=== PATIENT | female | born 1965 | race Caucasian/White ===

== ENCOUNTER 2016-04-27 22:04 | Inpatient (IN) | payer MEDICAID ==
--- NOTE | 2016-04-27 22:28 | EDPRACDOC ---
- General Information Stated Complaint: RESP Time Seen by Provider: 04/27/16 22:15 Information Source: Patient Mode Of Arrival: Ambulance Home Medications: Home Medications Sertraline HCl [Zoloft] 25 mg PO DAILY 04/26/13 Hydrochlorothiazide 25 mg PO QAM #30 tab 05/06/13 Mometasone/Formoterol [Dulera 100 Mcg/5 Mcg Inhaler] 1 puff IH BID 08/12/15 Omeprazole [Prilosec] 40 mg PO DAILY 08/12/15 Albuterol Sulfate [Proair Hfa] 2 puff INH Q4-6H PRN 01/06/16 Nebulizer [Erapid Nebulizer] 1 each MC .UNKNOWN 01/06/16 Albuterol/Ipratropium Neb [Duoneb] 3 ml NEB Q6H #1 box 01/13/16 ClonazePAM [Klonopin] 0.5 mg PO QHS PRN 02/17/16 Alprazolam [Xanax] 0.5 mg PO Q6H PRN #60 tablet 02/23/16 Azithromycin [Zithromax] 500 mg PO Q24H #7 mg 02/23/16 Hydrocodone Bit/Acetaminophen [Lortab 5/325] 1 tab PO Q4H PRN #30 tablet Prednisone [Deltasone, Orasone] 10 mg PO .TAPER #42 tab 02/23/16 Allergies/Adverse Reactions: Allergies Allergy/AdvReac Type Severity Reaction Status Date / Time No Known Allergies Allergy Verified 01/06/16 19:03 - History of Present Illness HPI: SOB FOR A WEEK, GRADUAL ONSET, PROGRESSIVELY WORSENING. MINIMAL PRODUCTIVE. SOLUMEDROL EN ROUTE, 2 DUONEBS BY EMS. SEVERAL NEBS AT HOME. NO FEVER. SOME CHEST PAIN WITH COUGHING. Shortness of Breath: Severe Relevant History: Reports: COPD Cough: Reports: Productive Rhinorrhea: Reports: None Ear Symptoms: Reports: None ED Past Medical History - History Reviewed Yes Nurses notes reviewed and agree except as marked - Patient Medical History Cardiac History: Reports: Hypertension Respiratory History: Reports: COPD (uses home nebs & inhalers - no oxygen), Pneumonia Psychological History: Reports: Depression (takes zoloft), Anxiety. Denies: Substance Use Disorder Systemic History: Denies: Cancer Surgical History: Reports: Tonsillectomy/Adnoidectomy - Family Medical History Reports: Hypertension (Mom), Diabetes (Mom), Cancer (mom), Stroke (mom), Cardiac Disorders (oldest child has "hardening of her arteries" - isn't sure what it's called) - Social Medical History Smoking Status: Heavy tobacco smoker (5 or more cigarettes/day or daily pipe/ cigar) Social History: Denies: Substance Use Disorder EDM Review of Systems - Review of Systems ROS Negative Except as Marked: Yes All systems reviewed and were negative except as marked Constitutional: Chills, Weakness Respiratory: Cough, Shortness of Breath Gastrointestinal: No Symptoms Reported Genitourinary: No Symptoms Reported Neurological: No Symptoms Reported - Physical Exam Constitutional: Alert (Awake) Oriented to: Time, Person, Place Last recorded Vital Signs: Oxygen Pulse Oxygen Saturation O2 Device Oxygen Flow Rate Fraction of Inspired Oxygen ( FIO2) - HEENT Head: Normal ( normocephalic) Eye Exam: Normal (PERRL, EOMI, Sclera white) Oropharynx: Normal (Pharynx:Moist without exudate,Gums-no swelling) Tympanic Membrane: Normal ENT EAC: Normal TMJ: Normal Nose: No Symptoms Reported (septum midline) Neck: Normal (FROM, trachea at midline) - Respiratory/Cardiovascular Respiratory: Wheezes (VERY TIGHT.) Cardiovascular: Normal - GI Auscultation: Normal (NABS) Palpation: Normal (Soft,No rebound or guarding, non distended) Tenderness: Non tender Salgado's Sign: Negative - Musculoskeletal Back: Normal (Non-Tender) Extremities: Normal (Normal tone, Pulses 2+ No cyanosis or edema, FROM) - Integumentary Skin: Normal, Warm, Dry Lymphatics: Normal (no adenopathy) - Neurologic Memory Impaired: Normal Motor Function: Normal (Normal tone, Pulses 2+ No cyanosis or edema, FROM) Cranial Nerve: Normal (CN II-X11 intact sensation, strength 5/5) Cerebellar: Normal Mood Description: Normal Perception: Normal ED SOB MDM - Results Result Diagrams: 04/27/16 22:17 04/27/16 22:17 - EKG EKG #1 EKG Time: 22:13 -: Yes EKG interpreted by me Rate: bpm: 91 Olden: Normal Rhythm: NSR Block: None Hypertrophy: None ST: Normal Comments: NORMAL EKG - Departure Yes I personally saw and evaluated the patient. Disposition: Admit IP To This Hospital Final Diagnosis: Acute exacerbation of chronic obstructive airways disease Decision to Admit Time: 23:28 Decision to admit date: 04/27/16 Decision to admit: from ED - Physician Consulted Hospitalist Time Called: 23:28 Provider Called: Latosha Boogie Time Driver [employer] Returned Call: 23:28
[2016-04-27 22:31] LABS: ALLEN'S TEST PASS; TCO2 31.2 MMOL/L (23-27)
[2016-04-27 22:32] LABS: ABG Draw Site Right Radial; ABG Draw Tech BKL
[2016-04-27 22:38] LABS: AUTOMATED BASOPHIL 1.7 % (0-2); AUTOMATED EOSINOPHIL 2.9 % (0-5); AUTOMATED LYMPH 34.1 % (17-44); AUTOMATED MONOCYTE 5.5 % (3-10); AUTOMATED NEUTROPHIL 55.8 % (45-76); MPV 8.1 fL (7.4-10.4)
[2016-04-27 22:45] LABS: PARTIAL THROMB. TIME 26.3 SEC (22-35); PT-INR 1.1
[2016-04-27 22:52] LABS: BLOOD UREA NITROGEN 18 MG/DL (7-17); CALC CORRECTED 9.2 MG/DL (8.4-10.2); CALCULATED OSMOLALITY 275 MOs/Kg (270-290); CHLORIDE 104 mEq/L (98-107); GLUCOSE 106 MG/DL (70-99); SODIUM LEVEL 142 mEq/L (137-146); TOTAL PROTEIN 7.1 G/DL (6.3-8.2)
[2016-04-27] MEDS ORDERED: CODEINE PO ONE (23:00)
[2016-04-27] MEDS ORDERED: GUAIFEN PO ONE (23:00)
[2016-04-27] MEDS ORDERED: ALBUTEROL 0.083% 3 ML NEB NEB ONE (23:18)
[2016-04-27 23:19] LABS: CA OXALATE 3+; LEUKOCYTES/URINE TRACE (NEGATIVE); NITRITE/URINE NEG (NEGATIVE); URINE OCCULT BLOOD NEG (NEG/TRACE)
--- NOTE | 2016-04-27 23:31 | DIRPT ---
CLINICAL DATA: Acute onset of shortness of breath and intermittent chest pain. Cough. Initial encounter. EXAM: PORTABLE CHEST 1 VIEW COMPARISON: Chest radiograph performed 02/22/2016 FINDINGS: The lungs are well-aerated and clear. There is no evidence of focal opacification, pleural effusion or pneumothorax. The cardiomediastinal silhouette is within normal limits. No acute osseous abnormalities are seen. IMPRESSION: No acute cardiopulmonary process seen. Electronically Signed By: Roberto Curtis M.D. On: 04/27/2016 23:28
[2016-04-27] MEDS ORDERED: MORPHINE 2 MG/ML INJECTION IV ONE (23:35)
--- NOTE | 2016-04-27 23:36 | HISTPHYS ---
- Chief Complaint Shortness of breath worsening all day long - History of Present Illness SOB FOR A WEEK, GRADUAL ONSET, PROGRESSIVELY WORSENING. MINIMAL PRODUCTIVE. SOLUMEDROL EN ROUTE, 2 DUONEBS BY EMS. SEVERAL NEBS AT HOME. NO FEVER. SOME CHEST PAIN WITH COUGHING. Shortness of Breath: Severe Relevant History: Reports: COPD Cough: Reports: Productive Rhinorrhea: Reports: None Ear Symptoms: Reports: None 50-year-old female presents emergency department complaining of shortness of breath. She was evaluated and found to be somewhat hypoxemic. She received Solu-Medrol on route also several rounds of duo nebs by EMS, several nebs at home and did not feel better and therefore is being admitted to the hospital. This will marked her 5th admission in 9 months for CHRONIC OBSTRUCTIVE PULMONARY DISEASE exacerbation. The patient continues to enjoy smoking and states that she has cut back to less than a pack a day. She is very anxious and tearful in the emergency department and complaining of pain in her chest as well. She will be admitted into the hospital for further evaluation and management of chronic obstructive pulmonary disease with acute exacerbation. - Medical History Cardiac History: Reports: Hypertension Respiratory History: Reports: COPD (uses home nebs & inhalers - no oxygen), Pneumonia GI/ History: Reports: No Significant History Musculoskeletal History: Reports: No Significant History Systemic History: Denies: Cancer Neurological History: Reports: No Significant History Psychological History: Reports: Depression (takes zoloft), Anxiety. Denies: Substance Use Disorder - Surgical History Reports: Tonsillectomy/Adnoidectomy - Medictions/Allergies Allergies No Known Allergies Allergy (Verified 01/06/16 19:03) Current Medication List: Reviewed Home Medications Sertraline HCl [Zoloft] 25 mg PO DAILY 04/26/13 Hydrochlorothiazide 25 mg PO QAM #30 tab 05/06/13 Mometasone/Formoterol [Dulera 100 Mcg/5 Mcg Inhaler] 1 puff IH BID 08/12/15 Omeprazole [Prilosec] 40 mg PO DAILY 08/12/15 Albuterol Sulfate [Proair Hfa] 2 puff INH Q4-6H PRN 01/06/16 Nebulizer [Erapid Nebulizer] 1 each MC .UNKNOWN 01/06/16 Albuterol/Ipratropium Neb [Duoneb] 3 ml NEB Q6H #1 box 01/13/16 ClonazePAM [Klonopin] 0.5 mg PO QHS PRN 02/17/16 Alprazolam [Xanax] 0.5 mg PO Q6H PRN #60 tablet 02/23/16 Azithromycin [Zithromax] 500 mg PO Q24H #7 mg 02/23/16 Hydrocodone Bit/Acetaminophen [Lortab 5/325] 1 tab PO Q4H PRN #30 tablet Prednisone [Deltasone, Orasone] 10 mg PO .TAPER #42 tab 02/23/16 - Family History Reports: Hypertension (Mom), Diabetes (Mom), Cancer (mom), Stroke (mom), Cardiac Disorders (oldest child has "hardening of her arteries" - isn't sure what it's called) - Social History Travel Outside of [place] in the Last 3 Months?: No Lives: with Spouse Smoking Status: Heavy tobacco smoker (5 or more cigarettes/day or daily pipe/ cigar) Social History: Denies: Alcohol Use, Substance Use Disorder Both her and her daughter smoke in the house and in the car she drives in - Review of Systems Constitutional: No Symptoms Reported (No Fever, chills, wt loss/gain, diaphoresis,fatigue/malaise.) Eyes: No Symptoms Reported (No blurry vision, visual changes, eye pain, or eye redness.) Ears: No Symptoms Reported (No ear pain or discharge) Nose: No Symptoms Reported (No nasal discharge/congestion or bleeding) Mouth: No Symptoms Reported (No oropharyngeal lesions or erythema) Respiratory: Shortness of Breath, Wheezing, Bronchitis, Dyspnea. negative: Sputum Cardiovascular: No Symptoms Reported (No chest pain or palpitations.) Gastrointestinal: No Symptoms Reported (No abdominal pain, nausea, vomiting, diarrhea, constipation, or bloody stool.) Genitourinary: No Symptoms Reported (No dysuria or hematuria.) Neurological: No Symptoms Reported (No headache, dizziness, seizures, or focal weakness.) Musculoskeletal:: No Symptoms Reported Integumentary: No Symptoms Reported (no rashes or lesions) Allergic/Immunologic: No Symptoms Reported (no rashes or lesions) Hematologic: No Symptoms Reported (No chronic anemia, bleeding, or easy bruising.), Other (Lymphatics- no lymph node swelling or pain.) Endocrine: No Symptoms Reported (No thyroid issues, polyuria, or polydipsia.) Psychiatric: No Symptoms Reported (Fully oriented, with normal and appropriate affect.) - Physical Exam Vital Signs: Initial Vitals Temperature 98.9 F 04/27/16 22:05 Pulse Rate 95 04/27/16 22:05 Respiratory Rate 26 H 04/27/16 22:05 Blood Pressure 179/93 04/27/16 22:05 Pulse Oxygen Saturation 95 04/27/16 22:05 Constitutional: Distress (Moderate due to CHRONIC OBSTRUCTIVE PULMONARY DISEASE and also due to anxiety), Well nourished. negative: Well appearing Oriented to: Time, Person, Place - HEENT Head: Normal (normocephalic, atraumatic.), Other (No cervical lymphadenopathy. No supraclavicular lymphadenopathy. Neck: No palpable mass, supple , trachea midline.) Eye: Normal (pupils equal, reactive to light, and round; EOMI, Sclera white) Oropharynx: Normal (Pharynx: Moist without exudate,Gums-no swelling, No oropharyngeal lesions or erythema, Mucous membranes are dry.) Nose: No Symptoms Reported (septum midline, Nares patent, without discharge or bleeding.) Respiratory: Accessory Muscle Use, Rhonchi, Tachypnea, Wheezes. negative: Retractions Cardiovascular: Normal (RRR , Normal S1, S2. No murmurs, rubs, or gallops. PMI non-displaced. Carotids: no carotid bruits. No bradycardia or tachycardia. DP pulses 2+ bilaterally.) - GI Auscultation: Normal (normal active sounds) Palpation: Normal (Soft,non distended,nontender. No hepatosplenomegaly.) Tenderness: Non tender (No rebound or guarding) Salgado's Sign: Negative - Musculoskeletal Back: Normal (Non-Tender) Extremities: Normal (Normal tone, DP pulses 2+ bilaterally, No cyanosis or edema bilaterally, FROM bilaterally.) - Integumentary Skin: Normal (Clean, dry, and intact. No rashes. No lesions.) Lymphatics: Normal (No cervical lymphadenopathy. No supraclavicular lymphadenopathy.) - Neurologic Memory Impaired: Normal Motor Function: Normal (Motor 5/5 throughout.Normal tone, Pulses 2+ No cyanosis or edema, FROM) Cranial Nerve: Normal (CN II-XII intact sensation, strength 5/5) Cerebellar: Normal (Babinski: toes downgoing bilaterally. Intact Finger to nose. Sensory grossly intact to light touch. Intact rapid alternating movements bilaterally. No pronator drift.) Mood Description: Anxious, Agitated Perception: Normal (Normal and appropriate affect.) - Focused CV Perfusion Exam Vital Signs: Last Vital Signs Temp 98.9 F 04/27/16 22:05 Pulse 84 04/27/16 23:20 Resp 22 04/27/16 23:20 BP 159/93 04/27/16 23:20 Pulse Ox 95 04/27/16 23:20 - Lab Results Laboratory Results - last 24 hr 04/27/16 04/27/16 04/27/16 22:17 22:17 22:17 WBC 10.0 RBC 4.98 Hgb 15.6 Hct 46.3 MCV 93 MCH 31.4 MCHC 33.7 RDW 14.1 Plt Count 328 MPV 8.1 Neut % (Auto) 55.8 Lymph % (Auto) 34.1 [place] % (Auto) 5.5 Eos % (Auto) 2.9 Baso % (Auto) 1.7 Absolute Neuts (auto) 5.50 Absolute Lymphs (auto) 3.40 PT INR APTT Puncture Site pH pCO2 pO2 HCO3 Total CO2 Base Excess FiO2 % Specimen Drawn By Sodium 142 Potassium 4.3 Chloride 104 Carbon Dioxide 29 Anion Gap 13 BUN 18 H Creatinine 0.60 Estimated GFR (MDRD) > 60 Glucose 106 H Calculated Osmolality 275 Lactic Acid 1.1 Calcium 9.0 Corrected Calcium 9.2 Total Bilirubin 0.4 AST 23 ALT 28 Alkaline Phosphatase 67 Troponin I < 0.01 [id number] Pept 178 Total Protein 7.1 Albumin 3.8 Urine Color Urine Clarity Urine pH Ur Specific [place] Urine Protein Urine Glucose (UA) Urine Ketones Urine Occult Blood Urine Nitrite Urine Bilirubin Urine Urobilinogen Ur Leukocyte Esterase Ur Epithelial Cells Calcium Oxalate Crystal Urine Bacteria Urine Mucus 04/27/16 04/27/16 04/27/16 22:17 22:25 23:04 WBC RBC Hgb Hct MCV MCH MCHC RDW Plt Count MPV Neut % (Auto) Lymph % (Auto) [place] % (Auto) Eos % (Auto) Baso % (Auto) Absolute Neuts (auto) Absolute Lymphs (auto) PT 10.8 INR 1.1 APTT 26.3 Puncture Site Right radial pH 7.400 pCO2 48.0 H pO2 70.0 L HCO3 29.7 H Total CO2 31.2 H Base Excess 4.0 H FiO2 % 3 lpm Specimen Drawn By Bkl Sodium Potassium Chloride Carbon Dioxide Anion Gap BUN Creatinine Estimated GFR (MDRD) Glucose Calculated Osmolality Lactic Acid Calcium Corrected Calcium Total Bilirubin AST ALT Alkaline Phosphatase Troponin I [id number]-[id number] Pept Total Protein Albumin Urine Color Yellow Urine Clarity Cldy Urine pH 6.0 Ur Specific [place] 1.025 Urine Protein Neg Urine Glucose (UA) Neg Urine Ketones Neg Urine Occult Blood Neg Urine Nitrite Neg Urine Bilirubin Neg Urine Urobilinogen <2.0 Ur Leukocyte Esterase Trace H Ur Epithelial Cells 4+ Calcium Oxalate Crystal 3+ Urine Bacteria Few Urine Mucus Sm amt - Diagnostic Findings EXAM: PORTABLE CHEST 1 VIEW COMPARISON: Chest radiograph performed 02/22/2016 FINDINGS: The lungs are well-aerated and clear. There is no evidence of focal opacification, pleural effusion or pneumothorax. The cardiomediastinal silhouette is within normal limits. No acute osseous abnormalities are seen. IMPRESSION: No acute cardiopulmonary process seen. Electronically Signed By: Roberto Curtis M.D. On: 04/27/2016 23:28 - Assessment (1) Acute exacerbation of chronic obstructive airways disease J44.1 - CHRONIC OBSTRUCTIVE PULMONARY DISEASE W (ACUTE) EXACERBATION Acute Present on Admission: Yes Patient will be admitted into the hospital and treated with IV antibiotics, oxygen supplementation, IV steroids, nebulized bronchodilators. (2) Hypoxia R09.02 - HYPOXEMIA Acute Present on Admission: Yes Up to this point patient has not required home oxygen. We will replete oxygen with nasal cannula oxygen. Will test her oxygen exercise capacity prior to discharge. Hopefully she will not developed an oxygen requirement. (3) Nicotine addiction F17.200 - NICOTINE DEPENDENCE, UNSPECIFIED, UNCOMPLICATED Acute Present on Admission: Yes Qualifiers: Nicotine product type: cigarettes Substance use status: unspecified nicotine-induced disorder Qualified Code(s): F17.219 - Nicotine dependence, cigarettes, with unspecified nicotine-induced disorders Discussed with the patient the reason she is being admitted to the hospital as her continued use of cigarettes. She became tearful and upset she states she is trying to quit and I encouraged her to continue attempting to quit. I informed her that takes multiple tries prior to being able to quit smoking. It is especially difficult if those in her house are continuing to smoke around her and in vehicles she travels in. (4) Anxiety and depression F41.8 - OTHER SPECIFIED ANXIETY DISORDERS Chronic Patient very tearful a seeming and very anxious. Likely related to hypoxemia. Continue home medications when they are verified. (5) Hypertension I10 - ESSENTIAL (PRIMARY) HYPERTENSION Chronic Qualifiers: Hypertension type: essential hypertension Continue home meds once verified. (6) Tobacco abuse Z72.0 - TOBACCO USE Chronic Continue encouraging patient to quit smoking. (7) Tobacco abuse counseling Z71.6 - TOBACCO ABUSE COUNSELING Acute Present on Admission: Yes Patient counseled for 10 minutes regarding smoking cessation. Will refer her to quit smart. Will give her a nicotine patch and Wellbutrin while in the hospital. - Plan Admit. Oxygen. IV antibiotics. IV steroids. Nebulized bronchodilators. Case Care Discussed with: Patient, Nursing Staff Total Time: 60 minutes Critical Care: No Couseling Time (>50% in counseling/coordination): No
[2016-04-27] MEDS ORDERED: GLUCAGON 1 MG VIAL SQ PRN (23:37)
[2016-04-27] MEDS ORDERED: DEXTROSE 25 GM/50 ML PFS IV PRN (23:37)
[2016-04-27] MEDS ORDERED: MAGNESIUM HYDROXIDE 30 ML BOTTLE PO PRN (23:37)
[2016-04-27] MEDS ORDERED: GLUCOSE (ORAL GEL) 15 GM TUBE PO PRN (23:37)
[2016-04-27] MEDS ORDERED: SODIUM CHLORIDE 0.9% 3 ML FLUSH FLUSH PRN (23:37)
[2016-04-27] MEDS ORDERED: ALBUTEROL 0.083% 3 ML NEB NEB PRN (23:37)
[2016-04-27] MEDS ORDERED: PROMETHAZINE 25 MG/ML VIAL IV PRN (23:37)
[2016-04-27] MEDS ORDERED: MORPHINE 2 MG/ML INJECTION IV PRN (23:41)
[2016-04-27] MEDS ORDERED: GUAIFENESIN 600 MG LA TAB PO PRN (23:41)
[2016-04-28] MEDS: ENOXAPARIN 40 MG/0.4 ML PFS SQ SCH ×2 (01:31→18:01)
[2016-04-28] MEDS: METHYLPREDNISOLONE 125 MG/2 ML VIAL IV SCH ×4 (01:31→17:59)
[2016-04-28] MEDS: NICOTINE 21 MG PATCH TOP SCH (01:31)
[2016-04-28] MEDS: CEFTRIAXONE 1 GM in D5W 100 ML IV SCH (01:32)
[2016-04-28] MEDS: AZITHROMYCIN 500 MG in D5W 250 ML IV SCH (01:32)
[2016-04-28] MEDS: NS/KCl 20 mEq 1,000 ML IV SCH ×3 (01:32→17:56)
[2016-04-28] MEDS: TUSSIONEX 5 ML ORAL SYRINGE PO PRN ×2 (01:44→14:49)
[2016-04-28] MEDS ORDERED: Vaccine Screening Complete SCH (02:00)
[2016-04-28] MEDS: Albuterol/Ipratropium Neb 3 ML NEB NEB SCH ×4 (02:10→20:10)
[2016-04-28 04:13] LABS: MPV 8.3 fL (7.4-10.4)
[2016-04-28 04:26] LABS: BLOOD UREA NITROGEN 14 MG/DL (7-17); CALCIUM 8.7 MG/DL (8.4-10.2); CALCULATED OSMOLALITY 275 MOs/Kg (270-290); CHLORIDE 104 mEq/L (98-107); GLUCOSE 192 MG/DL (70-99); SODIUM LEVEL 140 mEq/L (137-146)
[2016-04-28] MEDS: SODIUM CHLORIDE 0.9% 3 ML FLUSH FLUSH SCH ×2 (05:01→17:59)
[2016-04-28 05:10] LABS: SEG NEUTROPHIL 88 % (45-76)
[2016-04-28 05:11] LABS: TOTAL CELL COUNT 100
[2016-04-28] MEDS: REGULAR INSULIN 100 UNITS/ML - 3 ML VIAL SQ SCH ×4 (05:39→21:22)
[2016-04-28] MEDS: BuPROPion 150 MG SR TAB PO SCH (08:03)
[2016-04-28] MEDS: BENZONATATE 100 MG PERLES PO PRN (08:03)
[2016-04-28 09:01] LABS: ALLEN'S TEST PASS; BEb -0.7 (+/- 2); TCO2 27.3 MMOL/L (23-27)
[2016-04-28 09:02] LABS: ABG Draw Site Right Radial
[2016-04-28] MEDS: ACETAMINOPHEN 325 MG/TAB TABLET PO PRN (12:15)
[2016-04-28] MEDS: ALPRAZOLAM 0.5 MG TAB PO PRN ×2 (14:49→21:19)
[2016-04-28] MEDS ORDERED: Albuterol/Ipratropium Neb 3 ML NEB NEB SCH (15:00)
--- NOTE | 2016-04-28 15:11 | GENMEDPROG ---
Chief Complaint: COPD exac, resp insufficiency, Notes Reviewed: Yes Events from last night noted and discussed with Clinical Staff Current Medication List: Reviewed Currently: Reports: Cough, Wheezing, [place], SOB DVT Prophylaxis: Yes - Physical Examination Vital Signs and I&O: Last Vital Signs Temp 97.5 F 04/28/16 11:54 Pulse 101 04/28/16 14:00 Resp 18 04/28/16 11:54 BP 145/86 04/28/16 11:54 Pulse Ox 97 04/28/16 11:54 Oxygen Pulse Oxygen Saturation 97 O2 Device Nasal Cannula Oxygen Flow Rate 2 Fraction of Inspired Oxygen ( FIO2) Intake & Output 04/25/16 04/26/16 04/27/16 04/28/16 23:59 23:59 23:59 23:59 Intake Total 931 Output Total 800 Balance 131 Patient's weight 59.534 kg General: Moderate distress. negative: Alert, Oriented x3 HEENT: Normal, PERRLA, EOMI, Anicteric Sclera, Mucous membr. moist/pink Neck: Full range of motion, Normal Trachea alignment, Normal inspection, No Masses palpable Lymphatics: Normal (No cervical lymphadenopathy. No supraclavicular lymphadenopathy.) Respiratory: Accessory Muscle Use, Rhonchi, Tachypnea, Wheezes. negative: Retractions Cardiovascular: Regular rate and rhythm, Normal S1, Normal S2 GI: Normal bowel sounds, Soft, Non tender, No masses Extremities/Musculoskeletal: Normal pulses, FROM Skin: Warm,Dry and Intact, No breakdown, No significant lesion Neurological: Normal tone, Cranial nerves 3-12 NL, Drowsy, Lethargy Psych/Mental Status: Drowsy, Somnolent, Lethargic Lab/DI/Studies Reviewed: Laboratory Tests 04/28/16 04/28/16 04/28/16 03:50 03:50 03:50 WBC 8.5 Hgb 15.1 Hct 46.0 Plt Count 307 Seg Neuts % (Manual) 88 H Band Neutrophils % 0 pH pCO2 pO2 HCO3 Total CO2 Base Excess FiO2 % Sodium 140 Potassium 4.5 Chloride 104 Carbon Dioxide 28 Anion Gap 13 BUN 14 Creatinine 0.50 L Estimated GFR (MDRD) > 60 POC Capillary Glucose Calculated Osmolality 275 Calcium 8.7 Troponin I < 0.01 04/28/16 04/28/16 05:21 08:54 WBC Hgb Hct Plt Count Seg Neuts % (Manual) Band Neutrophils % pH 7.330 L pCO2 49.0 H pO2 99.0 HCO3 25.8 Total CO2 27.3 H Base Excess -0.7 FiO2 % 2 lpm nc Sodium Potassium Chloride Carbon Dioxide Anion Gap BUN Creatinine Estimated GFR (MDRD) POC Capillary Glucose 145 H Calculated Osmolality Calcium Troponin I - Assessment (1) Acute exacerbation of chronic obstructive airways disease Acute J44.1 - CHRONIC OBSTRUCTIVE PULMONARY DISEASE W (ACUTE) EXACERBATION Comment/Plan: Patient will be admitted into the hospital and treated with IV antibiotics, oxygen supplementation, IV steroids, nebulized bronchodilators. (2) Hypoxia Acute R09.02 - HYPOXEMIA Comment/Plan: Up to this point patient has not required home oxygen. We will replete oxygen with nasal cannula. Maintain O2 sat >92%. Will test her oxygen exercise capacity prior to discharge. (3) Acute bronchitis Acute J20.9 - ACUTE BRONCHITIS, UNSPECIFIED Comment/Plan: Add Rocephin, Zithromax antibiotics for acute infectious bronchitis. Treat with Duo-Nebs q 6H and q 2H PRN. Add Inhaled steroids also, to help decrease need for IV steroids. (4) Respiratory distress Acute R06.00 - DYSPNEA, UNSPECIFIED Comment/Plan: Still with significant coarse rhonchi and wheezes on exam. Encourage activity. Continue IV steroids, IV antibiotics, nebulizer treatments. (5) Anxiety and depression Chronic F41.8 - OTHER SPECIFIED ANXIETY DISORDERS Comment/Plan: Patient very tearful & seeming very anxious. Possible related to hypoxemia. Continue home medications when they are verified. (6) Hypertension Chronic I10 - ESSENTIAL (PRIMARY) HYPERTENSION Qualifiers: Hypertension type: essential hypertension Comment/Plan: Continue home meds once verified. (7) Tobacco abuse Chronic Z72.0 - TOBACCO USE Comment/Plan: Encourage patient to quit smoking. Offer nicotine patch, discuss vapor cigarettes as safer alternative. Case Care Discussed with: Patient, Nursing Staff Education/Counseling Given To: Patient Education/Counseling Given Regarding: Diagnosis, Treatment, Prognosis
[2016-04-28] MEDS ORDERED: OXYCODONE HCL 5 MG TABLET PO PRN (19:42)
[2016-04-28] MEDS: OXYCODONE HCL 5 MG TABLET PO ONE ×2 (20:28→21:19)
[2016-04-28] MEDS ORDERED: FLUTICASONE PROPIONATE INH SCH (21:00)
[2016-04-29] MEDS: AZITHROMYCIN 500 MG in D5W 250 ML IV SCH (00:46)
[2016-04-29] MEDS: NICOTINE 21 MG PATCH TOP SCH (00:46)
[2016-04-29] MEDS: CEFTRIAXONE 1 GM in D5W 100 ML IV SCH (01:25)
[2016-04-29] MEDS: Albuterol/Ipratropium Neb 3 ML NEB NEB SCH ×4 (01:48→20:33)
[2016-04-29] MEDS: Aluminum;Magnesium;Simethicone 30 ML UDC PO PRN (01:54)
[2016-04-29] MEDS: METHYLPREDNISOLONE 40 MG/1 ML VIAL IV SCH ×2 (05:32→16:50)
[2016-04-29] MEDS: PANTOPRAZOLE 40 MG TAB PO SCH (05:33)
[2016-04-29] MEDS: SODIUM CHLORIDE 0.9% 3 ML FLUSH FLUSH SCH ×2 (05:35→16:50)
[2016-04-29] MEDS: REGULAR INSULIN 100 UNITS/ML - 3 ML VIAL SQ SCH ×4 (05:35→21:06)
[2016-04-29] MEDS: FLUTICASONE PROPIONATE INH SCH ×2 (08:01→20:30)
[2016-04-29] MEDS: SERTRALINE HCL 100 MG TAB PO SCH (08:26)
[2016-04-29] MEDS: BuPROPion 150 MG SR TAB PO SCH (08:26)
[2016-04-29] MEDS ORDERED: Non-Formulary Medication ITEM (Omeprazole [Prilosec] 40 MG) PO SCH (09:00)
[2016-04-29] MEDS: ENOXAPARIN 40 MG/0.4 ML PFS SQ SCH (16:50)
[2016-04-29] MEDS: ALPRAZOLAM 0.5 MG TAB PO PRN (16:56)
--- NOTE | 2016-04-29 17:51 | GENMEDPROG ---
Chief Complaint: COPD exacerbation Subjective Note: Patient was off oxygen for brief period of time today but did not tolerate it. Blood sugars have been 106-169. Current Medication List: Reviewed Currently: Reports: Cough (Nonproductive), Wheezing, MONTG[place], SOB, Tobacco Use/Hx, Ambulating (Short of breath walking in room). Denies: Nausea and Vomiting, Fever/Chills DVT Prophylaxis: Yes - Physical Examination Vital Signs and I&O: Last Vital Signs Temp 98.2 F 04/29/16 14:20 Pulse 104 04/29/16 14:20 Resp 18 04/29/16 14:20 BP 129/80 04/29/16 14:20 Pulse Ox 94 04/29/16 14:20 Oxygen Pulse Oxygen Saturation 94 O2 Device Nasal Cannula Oxygen Flow Rate 1 Fraction of Inspired Oxygen ( FIO2) Intake & Output 04/26/16 04/27/16 04/28/16 04/29/16 23:59 23:59 23:59 23:59 Intake Total 2942 740 Output Total 1500 1600 Balance 1442 -860 Patient's weight 59.534 kg 60.838 kg General: Moderate distress (Still with an audible wheeze). negative: Alert, Oriented x3 HEENT: Normal, Anicteric Sclera, Mucous membr. moist/pink Neck: Full range of motion, Normal inspection, No Masses palpable Lymphatics: negative: Adenopathy Respiratory: Accessory Muscle Use, Rhonchi, Tachypnea (Less than admission), Wheezes. negative: Retractions Cardiovascular: Regular rate and rhythm, Normal S1, Normal S2 GI: Normal bowel sounds, Soft, Non tender, No masses Extremities/Musculoskeletal: Normal pulses, FROM Skin: Warm,Dry and Intact Neurological: Normal speech, Normal tone, Drowsy Psych/Mental Status: Appropriate, Normal Affect, Cooperative Lab/DI/Studies Reviewed: 04/28/16 03:50 04/28/16 03:50 - Assessment (1) Acute exacerbation of chronic obstructive airways disease Acute J44.1 - CHRONIC OBSTRUCTIVE PULMONARY DISEASE W (ACUTE) EXACERBATION Comment/Plan: Patient minimally improved from admission. Continue current treatment. She has had long hospital course this in the past. (2) Hypoxia Acute R09.02 - HYPOXEMIA Comment/Plan: Up to this point patient has not required home oxygen. We will replete oxygen with nasal cannula. Maintain O2 sat >92%. Will test her oxygen exercise capacity prior to discharge. (3) Anxiety and depression Chronic F41.8 - OTHER SPECIFIED ANXIETY DISORDERS Comment/Plan: Less anxious today. Continue home meds (4) Tobacco abuse counseling Acute Z71.6 - TOBACCO ABUSE COUNSELING Comment/Plan: Again discussed the use of nicotine patch and Wellbutrin but more importantly attempting a program like quits marked to help modify her behavior. She states she still enjoys smoking but knows that it is causing her lung disease Case Care Discussed with: Patient, Nursing Staff Education/Counseling Given To: Patient Education/Counseling Given Regarding: Diagnosis, Treatment, Prognosis Total Time: 40 minutes Critical Care: No Code: [id number] (12+)
[2016-04-29] MEDS: BENZONATATE 100 MG PERLES PO PRN (19:34)
[2016-04-29] MEDS: OXYCODONE HCL 5 MG TABLET PO PRN (19:34)
[2016-04-29] MEDS: TUSSIONEX 5 ML ORAL SYRINGE PO PRN (19:37)
[2016-04-30] MEDS: Albuterol/Ipratropium Neb 3 ML NEB NEB SCH ×4 (01:55→20:02)
[2016-04-30] MEDS: AZITHROMYCIN 500 MG in D5W 250 ML IV SCH (02:02)
[2016-04-30] MEDS: NICOTINE 21 MG PATCH TOP SCH (02:02)
[2016-04-30] MEDS: BENZONATATE 100 MG PERLES PO PRN ×2 (03:26→18:54)
[2016-04-30] MEDS: CEFTRIAXONE 1 GM in D5W 100 ML IV SCH (03:26)
[2016-04-30] MEDS: OXYCODONE HCL 5 MG TABLET PO PRN ×2 (03:31→21:19)
[2016-04-30] MEDS: PANTOPRAZOLE 40 MG TAB PO SCH (06:13)
[2016-04-30] MEDS: METHYLPREDNISOLONE 40 MG/1 ML VIAL IV SCH ×2 (06:13→16:52)
[2016-04-30] MEDS: SODIUM CHLORIDE 0.9% 3 ML FLUSH FLUSH SCH ×2 (06:14→16:53)
[2016-04-30] MEDS: REGULAR INSULIN 100 UNITS/ML - 3 ML VIAL SQ SCH ×4 (06:15→21:21)
[2016-04-30] MEDS: ALPRAZOLAM 0.5 MG TAB PO PRN (06:20)
[2016-04-30] MEDS: TUSSIONEX 5 ML ORAL SYRINGE PO PRN (06:22)
[2016-04-30] MEDS: FLUTICASONE PROPIONATE INH SCH ×2 (08:13→20:02)
[2016-04-30] MEDS: BuPROPion 150 MG SR TAB PO SCH (08:38)
[2016-04-30] MEDS: SERTRALINE HCL 100 MG TAB PO SCH (08:38)
--- NOTE | 2016-04-30 15:01 | GENMEDPROG ---
Chief Complaint: COPD exacerbation with hypoxia Subjective Note: The patient's oxygen has been weaned down. She still has significant episodes of bronchospasm and cough. Cough is still nonproductive. On is only ambulating to the bathroom. Current Medication List: Reviewed Currently: Reports: Cough (Nonproductive), Wheezing, [place], SOB, Tobacco Use/Hx, Ambulating (Ambulates to the bathroom). Denies: Nausea and Vomiting, Fever/ Chills DVT Prophylaxis: Yes - Physical Examination Vital Signs and I&O: Last Vital Signs Temp 97.8 F 04/30/16 10:11 Pulse 93 04/30/16 10:11 Resp 18 04/30/16 10:11 BP 113/71 04/30/16 10:11 Pulse Ox 92 04/30/16 10:11 Oxygen Pulse Oxygen Saturation 92 O2 Device Room Air Oxygen Flow Rate 1 Fraction of Inspired Oxygen ( FIO2) Intake & Output 04/27/16 04/28/16 04/29/16 04/30/16 23:59 23:59 23:59 23:59 Intake Total 2942 1420 925 Output Total 1500 1975 1500 Balance 3663 -851 -846 Patient's weight 59.534 kg 60.838 kg 61.887 kg General: Moderate distress (During spells of bronchospasm). negative: Alert, Oriented x3 HEENT: Normal, Anicteric Sclera, Mucous membr. moist/pink Neck: Full range of motion, Normal inspection, No Masses palpable Lymphatics: negative: Adenopathy Respiratory: Accessory Muscle Use, Wheezes. negative: Retractions, Rhonchi Cardiovascular: Regular rate and rhythm, Normal S1, Normal S2. negative: LE Edema GI: Normal bowel sounds, Soft, Non tender, No masses Extremities/Musculoskeletal: Normal pulses, FROM Skin: Warm,Dry and Intact Neurological: Normal speech, Normal tone Psych/Mental Status: Appropriate, Cooperative, Anxious - Assessment (1) Acute exacerbation of chronic obstructive airways disease Acute J44.1 - CHRONIC OBSTRUCTIVE PULMONARY DISEASE W (ACUTE) EXACERBATION Comment/Plan: Slow improvement. Has weaned oxygen to 1 later. Continue oxygen supplementation IV steroids nebulized bronchodilators. Will not taper IV steroids until she show some improvement (2) Hypoxia Acute R09.02 - HYPOXEMIA Comment/Plan: No oxygen requirement prior to this admission. Will recheck prior to discharge when she ambulates. For now will use oxygen to keep sats greater than 92 (3) Anxiety and depression Chronic F41.8 - OTHER SPECIFIED ANXIETY DISORDERS Comment/Plan: Less anxious today. Continue home meds (4) Tobacco abuse counseling Acute Z71.6 - TOBACCO ABUSE COUNSELING Comment/Plan: Patient states she is willing to quit smoking and would like to. Discussed quit smart program at the hospital. Have asked respiratory therapy to help with counseling Case Care Discussed with: Patient, Respiratory Therapy Education/Counseling Given To: Patient Education/Counseling Given Regarding: Diagnosis, Treatment, Prognosis Total Time: 35 minutes Critical Care: No Couseling Time (>50% in counseling/coordination): Yes Code: 33470 (12+)
[2016-04-30] MEDS: ENOXAPARIN 40 MG/0.4 ML PFS SQ SCH (16:52)
[2016-05-01] MEDS: Albuterol/Ipratropium Neb 3 ML NEB NEB SCH ×4 (01:39→20:24)
[2016-05-01] MEDS: NICOTINE 21 MG PATCH TOP SCH (02:20)
[2016-05-01] MEDS: AZITHROMYCIN 500 MG in D5W 250 ML IV SCH (02:21)
[2016-05-01] MEDS: TUSSIONEX 5 ML ORAL SYRINGE PO PRN ×2 (02:29→20:18)
[2016-05-01] MEDS: ALPRAZOLAM 0.5 MG TAB PO PRN ×2 (02:29→18:09)
[2016-05-01] MEDS: CEFTRIAXONE 1 GM in D5W 100 ML IV SCH (04:30)
[2016-05-01] MEDS: METHYLPREDNISOLONE 40 MG/1 ML VIAL IV SCH (05:21)
[2016-05-01] MEDS: PANTOPRAZOLE 40 MG TAB PO SCH (05:21)
[2016-05-01] MEDS: SODIUM CHLORIDE 0.9% 3 ML FLUSH FLUSH SCH ×2 (05:22→16:53)
[2016-05-01] MEDS: REGULAR INSULIN 100 UNITS/ML - 3 ML VIAL SQ SCH ×4 (05:23→21:30)
[2016-05-01] MEDS: BuPROPion 150 MG SR TAB PO SCH ×2 (08:18→21:29)
[2016-05-01] MEDS: SERTRALINE HCL 100 MG TAB PO SCH (08:18)
[2016-05-01] MEDS: FLUTICASONE PROPIONATE INH SCH ×2 (08:30→20:29)
--- NOTE | 2016-05-01 09:14 | GENMEDPROG ---
Subjective Note: Feels a little bit worse today. Complaining of body aches and generalized malaise. Weaned down to 1 L yesterday but went back up to 2 L overnight. Still with cough in spasms. Largely nonproductive. No fevers Currently: Reports: Cough (Nonproductive, paroxysmal), Wheezing, [place], SOB, Tobacco Use/Hx, Ambulating (Ambulates to the bathroom). Denies: Nausea and Vomiting, Fever/Chills DVT Prophylaxis: Yes - Physical Examination Vital Signs and I&O: Last Vital Signs Temp 98.3 F 05/01/16 05:35 Pulse 71 05/01/16 05:35 Resp 18 05/01/16 05:35 BP 132/77 05/01/16 05:35 Pulse Ox 93 05/01/16 08:00 Oxygen Pulse Oxygen Saturation 93 O2 Device Room Air Oxygen Flow Rate 2 Fraction of Inspired Oxygen ( FIO2) Intake & Output 04/28/16 04/29/16 04/30/16 05/01/16 23:59 23:59 23:59 23:59 Intake Total 2942 1420 1325 636 Output Total 1500 0857 1950 700 Balance 1442 -555 -625 -64 Patient's weight 59.534 kg 60.838 kg 61.887 kg 61.689 kg General: Moderate distress (During spells of bronchospasm). negative: Alert, Oriented x3 HEENT: Normal, Anicteric Sclera, Mucous membr. moist/pink Neck: Full range of motion, Normal inspection, No Masses palpable Lymphatics: negative: Adenopathy Respiratory: Accessory Muscle Use, Wheezes, Excursion (decreased excursion but same as yesterday). negative: Retractions, Rhonchi Cardiovascular: Regular rate and rhythm, Normal S1, Normal S2. negative: LE Edema GI: Normal bowel sounds, Soft, Non tender, No masses Extremities/Musculoskeletal: Normal pulses, FROM Skin: Warm,Dry and Intact Neurological: Normal speech, Normal tone Psych/Mental Status: Appropriate, Cooperative, Anxious - Assessment (1) Acute exacerbation of chronic obstructive airways disease Acute J44.1 - CHRONIC OBSTRUCTIVE PULMONARY DISEASE W (ACUTE) EXACERBATION Comment/Plan: Had weaned yesterday but unable to tolerate and now is on 2 L again. During last hospitalization was very slow to clear. repeat CXR but no PNA on admission. Encouraged flutter valve q hr and incentive spirometer qid (2) Hypoxia Acute R09.02 - HYPOXEMIA Comment/Plan: No oxygen requirement prior to this admission. Will recheck prior to discharge when she ambulates. For now will use oxygen to keep sats greater than 92 (3) Anxiety and depression Chronic F41.8 - OTHER SPECIFIED ANXIETY DISORDERS Comment/Plan: Less anxious today. Continue home meds (4) Tobacco abuse counseling Acute Z71.6 - TOBACCO ABUSE COUNSELING Comment/Plan: Wearing nicotine patch Case Care Discussed with: Patient, Nursing Staff Education/Counseling Given To: Patient Education/Counseling Given Regarding: Diagnosis, Treatment Total Time: 30 min Critical Care: No Couseling Time (>50% in counseling/coordination): Yes Code: 39862 (12+)
[2016-05-01] MEDS: METHYLPREDNISOLONE 125 MG/2 ML VIAL IV SCH ×2 (15:02→20:10)
--- NOTE | 2016-05-01 15:30 | DIRPT ---
CLINICAL DATA: Patient with worsening cough. Chest pain. EXAM: CHEST 2 VIEW COMPARISON: Chest radiograph 04/27/2016. FINDINGS: Monitoring leads overlie the patient. Normal cardiac mediastinal contours. No consolidative pulmonary opacities. No pleural effusion or pneumothorax. Emphysematous change. Regional skeleton unremarkable. IMPRESSION: No acute cardiopulmonary process. Electronically Signed By: Sarbjit Yanez M.D. On: 05/01/2016 15:27
[2016-05-01] MEDS: ENOXAPARIN 40 MG/0.4 ML PFS SQ SCH (16:51)
[2016-05-01] MEDS: OXYCODONE HCL 5 MG TABLET PO PRN (18:09)
[2016-05-02] MEDS: Albuterol/Ipratropium Neb 3 ML NEB NEB SCH ×4 (01:03→19:39)
[2016-05-02] MEDS: AZITHROMYCIN 500 MG in D5W 250 ML IV SCH (01:24)
[2016-05-02] MEDS: NICOTINE 21 MG PATCH TOP SCH ×2 (02:24→03:52)
[2016-05-02] MEDS: CEFTRIAXONE 1 GM in D5W 100 ML IV SCH (03:51)
[2016-05-02] MEDS: METHYLPREDNISOLONE 125 MG/2 ML VIAL IV SCH ×4 (03:52→19:54)
[2016-05-02] MEDS: OXYCODONE HCL 5 MG TABLET PO PRN ×4 (04:02→19:48)
[2016-05-02] MEDS: SODIUM CHLORIDE 0.9% 3 ML FLUSH FLUSH SCH ×2 (05:53→16:15)
[2016-05-02] MEDS: PANTOPRAZOLE 40 MG TAB PO SCH (05:53)
[2016-05-02] MEDS: REGULAR INSULIN 100 UNITS/ML - 3 ML VIAL SQ SCH ×4 (05:54→22:31)
[2016-05-02] MEDS: FLUTICASONE PROPIONATE INH SCH ×2 (08:11→19:40)
[2016-05-02] MEDS: SERTRALINE HCL 100 MG TAB PO SCH (08:35)
[2016-05-02] MEDS: BuPROPion 150 MG SR TAB PO SCH ×2 (08:35→22:32)
[2016-05-02] MEDS: HYDROCHLOROTHIAZIDE 25 MG TAB PO SCH (08:36)
[2016-05-02] MEDS: ALPRAZOLAM 0.5 MG TAB PO PRN ×2 (09:37→16:09)
[2016-05-02] MEDS: Aluminum;Magnesium;Simethicone 30 ML UDC PO PRN (14:05)
[2016-05-02] MEDS ORDERED: CHAPSTICK LIP BALM ONE (16:05)
[2016-05-02] MEDS: ENOXAPARIN 40 MG/0.4 ML PFS SQ SCH (16:09)
[2016-05-02] MEDS: TUSSIONEX 5 ML ORAL SYRINGE PO PRN (16:15)
--- NOTE | 2016-05-02 16:23 | GENMEDPROG ---
Subjective Note: 50-year-old female admitted with acute CHRONIC OBSTRUCTIVE PULMONARY DISEASE exacerbation. Patient has had 2 chest x-rays this admission. Both were reviewed with her and her guest. Neither shows any pneumonia. Patient continues to desaturate to low levels with minimal exertion. Patient asked many questions about why she is so weak and tired. I explained to her that takes a significant amount of energy for her just to do breathing because of her CHRONIC OBSTRUCTIVE PULMONARY DISEASE. Notes Reviewed: Yes Events from last night noted and discussed with Clinical Staff Current Medication List: Reviewed Currently: Reports: Cough (Nonproductive, paroxysmal), Wheezing, [place], SOB, Tobacco Use/Hx, Ambulating (Ambulates to the bathroom). Denies: Nausea and Vomiting, Fever/Chills DVT Prophylaxis: Yes - Physical Examination Vital Signs and I&O: Last Vital Signs Temp 98.0 F 05/02/16 14:22 Pulse 99 05/02/16 14:22 Resp 20 05/02/16 14:22 BP 131/74 05/02/16 14:22 Pulse Ox 95 05/02/16 14:22 Oxygen Pulse Oxygen Saturation 95 O2 Device Nasal Cannula Oxygen Flow Rate 2 Fraction of Inspired Oxygen ( FIO2) Intake & Output 04/29/16 04/30/16 05/01/16 05/02/16 23:59 23:59 23:59 23:59 Intake Total 1420 1325 1116 370 Output Total 1975 1950 1100 1900 Balance -773 -878 16 -2048 Patient's weight 60.838 kg 61.887 kg 61.689 kg 62.227 kg General: Moderate distress (During spells of bronchospasm). negative: Alert, Oriented x3 HEENT: Normal, Anicteric Sclera, Mucous membr. moist/pink Neck: Full range of motion, Normal inspection, No Masses palpable Lymphatics: negative: Adenopathy Respiratory: Accessory Muscle Use, Wheezes, Excursion (decreased excursion but same as yesterday). negative: Retractions, Rhonchi Cardiovascular: Regular rate and rhythm, Normal S1, Normal S2. negative: LE Edema GI: Normal bowel sounds, Soft, Non tender, No masses Extremities/Musculoskeletal: Normal pulses, FROM Skin: Warm,Dry and Intact Neurological: Normal speech, Normal tone Psych/Mental Status: Appropriate, Cooperative, Anxious - Assessment (1) Acute exacerbation of chronic obstructive airways disease Acute J44.1 - CHRONIC OBSTRUCTIVE PULMONARY DISEASE W (ACUTE) EXACERBATION Comment/Plan: Had weaned yesterday but unable to tolerate and now is on 2 L again. During last hospitalization was very slow to clear. Encouraged flutter valve q hr and incentive spirometer qid. Chest x-ray is negative as above (2) Hypoxia Acute R09.02 - HYPOXEMIA Comment/Plan: No oxygen requirement prior to this admission. Will recheck prior to discharge when she ambulates. For now will use oxygen to keep sats greater than 92 (3) Nicotine addiction Acute F17.200 - NICOTINE DEPENDENCE, UNSPECIFIED, UNCOMPLICATED Qualifiers: Nicotine product type: cigarettes Substance use status: unspecified nicotine-induced disorder Qualified Code(s): F17.219 - Nicotine dependence, cigarettes, with unspecified nicotine-induced disorders Comment/Plan: Patient states that she is interested in quitting at discharge. I encouraged her to do so. She will use nicotine patch and medications. (4) Anxiety and depression Chronic F41.8 - OTHER SPECIFIED ANXIETY DISORDERS Comment/Plan: Less anxious today. Continue home meds (5) Hypertension Chronic I10 - ESSENTIAL (PRIMARY) HYPERTENSION Qualifiers: Hypertension type: essential hypertension Comment/Plan: Continue home meds. (6) Tobacco abuse Chronic Z72.0 - TOBACCO USE Comment/Plan: Encourage patient to quit smoking. Offer nicotine patch, discuss vapor cigarettes as safer alternative. (7) Tobacco abuse counseling Acute Z71.6 - TOBACCO ABUSE COUNSELING Comment/Plan: Wearing nicotine patch. Interested in quitting smoking. - Plan Continue current care. Discharge home when oxygen requirements are decreased. Case Care Discussed with: Patient, Family, Nursing Staff Education/Counseling Given To: Patient, Family Member Education/Counseling Given Regarding: Diagnosis, Treatment, Prognosis, Follow Up , Disposition Plan Total Time: 40 minutes Critical Care: No Couseling Time (>50% in counseling/coordination): No
[2016-05-02] MEDS: MORPHINE 2 MG/ML INJECTION IV PRN (22:24)
[2016-05-03] MEDS: NICOTINE 21 MG PATCH TOP SCH
[2016-05-03] MEDS: OXYCODONE HCL 5 MG TABLET PO PRN ×3 (00:06→22:04)
[2016-05-03] MEDS: Albuterol/Ipratropium Neb 3 ML NEB NEB SCH ×4 (01:50→20:07)
[2016-05-03] MEDS: CEFTRIAXONE 1 GM in D5W 100 ML IV SCH (02:31)
[2016-05-03] MEDS: METHYLPREDNISOLONE 125 MG/2 ML VIAL IV SCH ×4 (02:31→19:24)
[2016-05-03] MEDS: REGULAR INSULIN 100 UNITS/ML - 3 ML VIAL SQ SCH ×4 (05:53→21:52)
[2016-05-03] MEDS: SODIUM CHLORIDE 0.9% 3 ML FLUSH FLUSH SCH ×2 (05:54→17:35)
[2016-05-03] MEDS: PANTOPRAZOLE 40 MG TAB PO SCH (05:54)
[2016-05-03] MEDS: MORPHINE 2 MG/ML INJECTION IV PRN ×2 (06:12→19:25)
[2016-05-03] MEDS: SERTRALINE HCL 100 MG TAB PO SCH (08:20)
[2016-05-03] MEDS: HYDROCHLOROTHIAZIDE 25 MG TAB PO SCH (08:20)
[2016-05-03] MEDS: BuPROPion 150 MG SR TAB PO SCH ×2 (08:20→21:53)
[2016-05-03 08:48] LABS: MPV 7.2 fL (7.4-10.4)
[2016-05-03 09:04] LABS: BLOOD UREA NITROGEN 16 MG/DL (7-17); CALCIUM 9.6 MG/DL (8.4-10.2); CALCULATED OSMOLALITY 273 MOs/Kg (270-290); CHLORIDE 95 mEq/L (98-107); GLUCOSE 123 MG/DL (70-99); SODIUM LEVEL 141 mEq/L (137-146)
[2016-05-03] MEDS: FLUTICASONE PROPIONATE INH SCH ×2 (09:08→20:08)
[2016-05-03 09:47] LABS: SEG NEUTROPHIL 92 % (45-76)
[2016-05-03] MEDS ORDERED: NS 250 ML IV ONE (11:18)
[2016-05-03] MEDS: ALPRAZOLAM 0.5 MG TAB PO PRN ×2 (14:16→22:04)
--- NOTE | 2016-05-03 17:23 | GENMEDPROG ---
Subjective Note: Patient remains significantly debilitated and short of breath. This is hospital day 7. For her and she has not shown very much improvement at all. She continues to have a significant amount of anxiety and wheezing. Notes Reviewed: Yes Events from last night noted and discussed with Clinical Staff Current Medication List: Reviewed Currently: Reports: Cough (Nonproductive, paroxysmal), Wheezing, [place], SOB, Tobacco Use/Hx, Ambulating (Ambulates to the bathroom). Denies: Nausea and Vomiting, Fever/Chills DVT Prophylaxis: Yes - Physical Examination Vital Signs and I&O: Last Vital Signs Temp 97.5 F 05/03/16 14:55 Pulse 89 05/03/16 14:55 Resp 18 05/03/16 14:55 BP 135/75 05/03/16 14:55 Pulse Ox 92 05/03/16 14:55 Oxygen Pulse Oxygen Saturation 92 O2 Device Nasal Cannula Oxygen Flow Rate 2 Fraction of Inspired Oxygen ( FIO2) Intake & Output 04/30/16 05/01/16 05/02/16 05/03/16 23:59 23:59 23:59 23:59 Intake Total 1325 1116 370 626 Output Total 1950 1100 2700 600 Balance -625 21 -2246 26 Patient's weight 61.887 kg 61.689 kg 62.227 kg 61.348 kg General: Moderate distress (During spells of bronchospasm). negative: Alert, Oriented x3 HEENT: Normal, Anicteric Sclera, Mucous membr. moist/pink Neck: Full range of motion, Normal inspection, No Masses palpable Lymphatics: negative: Adenopathy Respiratory: Accessory Muscle Use, Wheezes, Excursion (decreased excursion but same as yesterday). negative: Retractions, Rhonchi Cardiovascular: Regular rate and rhythm, Normal S1, Normal S2. negative: LE Edema GI: Normal bowel sounds, Soft, Non tender, No masses Extremities/Musculoskeletal: Normal pulses, FROM Skin: Warm,Dry and Intact Neurological: Normal speech, Normal tone Psych/Mental Status: Appropriate, Cooperative, Anxious Lab/DI/Studies Reviewed: Abnormal Lab Results 05/02/16 05/03/16 05/03/16 21:49 05:37 08:44 WBC MPV Seg Neuts % (Manual) Lymphocytes % (Manual) Absolute Neutrophils Chloride 95 L Carbon Dioxide 38 H Glucose 123 H POC Capillary Glucose 248 H 139 H 05/03/16 05/03/16 05/03/16 08:44 11:17 16:23 WBC 18.8 H MPV 7.2 L Seg Neuts % (Manual) 92 H Lymphocytes % (Manual) 6 L Absolute Neutrophils 17.48 H Chloride Carbon Dioxide Glucose POC Capillary Glucose 122 H 126 H - Assessment (1) Acute exacerbation of chronic obstructive airways disease Acute J44.1 - CHRONIC OBSTRUCTIVE PULMONARY DISEASE W (ACUTE) EXACERBATION Comment/Plan: Had weaned yesterday but unable to tolerate and now is on 2 L again. During last hospitalization was very slow to clear. Encouraged flutter valve q hr and incentive spirometer qid. Patient with severe exacerbation of CHRONIC OBSTRUCTIVE PULMONARY DISEASE needs to continue current care. Expect a very slow recovery. Will consider referral to [place]. (2) Hypoxia Acute R09.02 - HYPOXEMIA Comment/Plan: No oxygen requirement prior to this admission. Will recheck prior to discharge when she ambulates. For now will use oxygen to keep sats greater than 92 (3) Nicotine addiction Acute F17.200 - NICOTINE DEPENDENCE, UNSPECIFIED, UNCOMPLICATED Qualifiers: Nicotine product type: cigarettes Substance use status: unspecified nicotine-induced disorder Qualified Code(s): F17.219 - Nicotine dependence, cigarettes, with unspecified nicotine-induced disorders Comment/Plan: Patient states that she is interested in quitting at discharge. I encouraged her to do so. She will use nicotine patch and medications. (4) Anxiety and depression Chronic F41.8 - OTHER SPECIFIED ANXIETY DISORDERS Comment/Plan: Much more short of breath and consequently much more anxious today. (5) Hypertension Chronic I10 - ESSENTIAL (PRIMARY) HYPERTENSION Qualifiers: Hypertension type: essential hypertension Comment/Plan: Continue home meds. (6) Tobacco abuse Chronic Z72.0 - TOBACCO USE Comment/Plan: Encourage patient to quit smoking. Offer nicotine patch, discuss vapor cigarettes as safer alternative. (7) Tobacco abuse counseling Acute Z71.6 - TOBACCO ABUSE COUNSELING Comment/Plan: Wearing nicotine patch. Interested in quitting smoking. - Plan Continue current care. Discharge home when oxygen requirements are decreased. Disposition Plan: Hopefully home Case Care Discussed with: Patient, Nursing Staff Education/Counseling Given To: Patient Education/Counseling Given Regarding: Diagnosis, Treatment, Prognosis, Follow Up , Disposition Plan Total Time: 45 minutes Critical Care: No Couseling Time (>50% in counseling/coordination): No
[2016-05-03] MEDS: ENOXAPARIN 40 MG/0.4 ML PFS SQ SCH (17:34)
[2016-05-03] MEDS: Levofloxacin 500 mg/100 ml D5W 500 MG/100 ML RTU IV SCH (18:36)
[2016-05-03] MEDS: TUSSIONEX 5 ML ORAL SYRINGE PO PRN (18:38)
--- NOTE | 2016-05-03 23:23 | HIMCONS ---
DATE OF CONSULT: REQUESTING PHYSICIAN: Dr. Boogie. REASON FOR CONSULTATION: Respiratory failure. HISTORY OF PRESENT ILLNESS: The patient is a 50-year-old lady, well known to me from previous office and hospital visits. Apparently, the patient was in the hospital couple months ago and was discharged in January. The patient became short of breath and hypoxemic while at home, she was brought to the hospital by EMS, was given Solu-Medrol along with nebulizers en route and she has been having multiple admissions because of COPD exacerbation recently, continues to smoke. She is feeling about minimally improved since her admission 6 days ago. Complains of coughing, wheezing, and tightness in her chest. Remains on high doses of Solu-Medrol. PAST MEDICAL HISTORY: Significant for hypertension, COPD with persistent nicotine addiction, and depression taking Zoloft along with anxiety. PAST SURGICAL HISTORY: Significant for adenoidectomy and tonsillectomy in the past. ALLERGIES: NO KNOWN DRUG ALLERGIES. MEDICATIONS: In the chart are noted. FAMILY HISTORY: Significant for mother having diabetes, hypertension, stroke, and cancer. SOCIAL HISTORY: The patient has been a smoker most of her life. No history of alcohol or drug abuse. REVIEW OF SYSTEMS: Review of systems is negative except for as mentioned in the history of present illness. PHYSICAL EXAMINATION: VITAL SIGNS: Temperature is 97.5 degrees Fahrenheit, pulse 89, respiratory rate is 18, blood pressure 135/75, pulse ox is 92% on 2 liters of nasal cannula. CHEST: Scattered bilateral wheezing. HEART: S1, S2. Regular. No murmur. EXTREMITIES: No clubbing, cyanosis, or edema. ABDOMEN: Soft and nontender. Bowel sounds present. Hepatosplenomegaly is absent. NEURO: Grossly nonfocal. The patient is moving all extremities. LABORATORY DATA: White count has risen to 18.8 from 8.5 a couple of days ago. Hemoglobin 15.5, hemoglobin 46.6, platelets are 357. Sodium 141, potassium 4.4, chloride 95, CO2 is 38, BUN 16, creatinine is 0.7, glucose is 123. Blood gas on admission, pH was 7.41, pCO2 of 47, PO2 of 67 on room air. IMAGING REPORTS: Chest x-ray was done 2 days ago was seen personally. The patient seems to have hyperinflated lung suazo with no acute infiltrates. IMPRESSION: [id number] respiratory failure with chronic obstructive pulmonary disease with exacerbation. Nicotine addiction, anxiety, depression, hypertension. PLAN: The patient has been on Rocephin and is getting Solu-Medrol 80 mg IV q.6 hours along with nicotine patch and continued DVT and GI prophylaxis on this patient given the fact that her white count has risen from 8.5-18.8 it may be a good idea to start the patient on Levaquin in addition to Rocephin. I would continue the Lasix q.12 hours to keep the patient negative balance. Continue Solu-Medrol but change it to 60 mg IV q.6 hours. I think the patient's overall COPD has gotten worse and that is 1 of the reasons that she is ending up in the hospital quite frequently. I told her to quit smoking and as COPD has gotten significantly worse. She understands and wants to work on quitting smoking. Continue aggressive physical therapy and would follow the patient closely. Thank you much for the consultation. [id number]
[2016-05-04] MEDS: CEFTRIAXONE 1 GM in D5W 100 ML IV SCH (01:24)
[2016-05-04] MEDS: NICOTINE 21 MG PATCH TOP SCH (01:24)
[2016-05-04] MEDS: METHYLPREDNISOLONE 125 MG/2 ML VIAL IV SCH ×4 (01:25→19:20)
[2016-05-04] MEDS: MORPHINE 2 MG/ML INJECTION IV PRN ×3 (01:30→19:15)
[2016-05-04] MEDS: Albuterol/Ipratropium Neb 3 ML NEB NEB SCH ×4 (01:43→19:53)
[2016-05-04 04:21] LABS: ALLEN'S TEST PASS; BEb 13.5 (+/- 2); TCO2 42.8 MMOL/L (23-27)
[2016-05-04 04:22] LABS: ABG Draw Site Right Radial; ABG Draw Tech BKL
[2016-05-04] MEDS: REGULAR INSULIN 100 UNITS/ML - 3 ML VIAL SQ SCH ×4 (06:02→21:44)
[2016-05-04] MEDS: SODIUM CHLORIDE 0.9% 3 ML FLUSH FLUSH SCH ×2 (06:02→17:44)
[2016-05-04] MEDS: PANTOPRAZOLE 40 MG TAB PO SCH (06:02)
[2016-05-04] MEDS: ALPRAZOLAM 0.5 MG TAB PO PRN ×3 (06:05→21:43)
[2016-05-04 07:38] LABS: BLOOD UREA NITROGEN 17 MG/DL (7-17); CALCIUM 9.2 MG/DL (8.4-10.2); CALCULATED OSMOLALITY 273 MOs/Kg (270-290); CHLORIDE 94 mEq/L (98-107); GLUCOSE 161 MG/DL (70-99); SODIUM LEVEL 139 mEq/L (137-146)
--- NOTE | 2016-05-04 08:04 | PCM.PULM ---
Chief Complaint: Respiratory failure acute on chronic COPD exacerbation Anxiety Tobacco abuse Uneventful overnight Patient has a c/o SOB,[place],cough,sputum,wheeze. No chest pain, fever, chills reported Medication list reviewed:yes Notes reviewed:yes, Events from last night noted and discussed with Clinical Staff DVT prophylaxis:yes - Physical Examination Vital Signs and I&O: Last Vital Signs Temp 97.8 F 05/04/16 04:00 Pulse 80 05/04/16 05:29 Resp 20 05/04/16 04:00 BP 160/85 05/04/16 04:00 Pulse Ox 93 05/04/16 08:00 Oxygen Pulse Oxygen Saturation 93 O2 Device Nasal Cannula Oxygen Flow Rate 2 Fraction of Inspired Oxygen ( FIO2) Intake & Output 05/01/16 05/02/16 05/03/16 05/04/16 23:59 23:59 23:59 23:59 Intake Total 5698 846 2735 171 Output Total 1100 2700 950 350 Balance 16 -3470 249 -179 Patient's weight 61.689 kg 62.227 kg 61.348 kg 61.348 kg General: Alert, Oriented x3, Cooperative, No acute distress, Weakness, Fatigue Respiratory: Diminished, Wheezes Cardiovascular: Regular rate, Regular rate and rhythm, Normal S1, No Gallops, Rubs/Murmurs, Normal S2, Good Pedal Pulses (Dp pulses 2+ bilaterally) GI: Normal bowel sounds, Soft, Non tender, No hepatospenomegaly, No masses Extremities/Musculoskeletal: Normal pulses Skin: Warm,Dry and Intact, No rashes, No breakdown, No significant lesion Neurological: Normal Steady Gait, Normal speech, Strength at 5/5 X4 ext, Normal tone, Cranial nerves 3-12 NL Psych/Mental Status: Appropriate Result Diagrams: 05/03/16 08:44 05/04/16 06:20 Labs (last 24 hours): Laboratory Results - last 24 hr 05/03/16 05/03/16 05/03/16 08:44 08:44 11:17 WBC 18.8 H RBC 5.02 Hgb 15.5 Hct 46.6 MCV 93 MCH 31.0 MCHC 33.4 RDW 13.5 Plt Count 357 MPV 7.2 L Neut % (Auto) Cancelled Lymph % (Auto) Cancelled Gordon % (Auto) Cancelled Eos % (Auto) Cancelled Baso % (Auto) Cancelled Absolute Neuts (auto) Cancelled Absolute Lymphs (auto) Cancelled Seg Neuts % (Manual) 92 H Band Neutrophils % 1 Lymphocytes % (Manual) 6 L Monocytes % (Manual) 1 Absolute Neutrophils 17.48 H Absolute Lymphocytes 1.13 Vacuolated Neuts Few Platelet Estimate Norm RBC Morphology Norm Puncture Site pH pCO2 pO2 HCO3 Total CO2 Base Excess FiO2 % Specimen Drawn By Sodium 141 Potassium 4.4 Chloride 95 L Carbon Dioxide 38 H Anion Gap 12 BUN 16 Creatinine 0.70 Estimated GFR (MDRD) > 60 Glucose 123 H POC Capillary Glucose 122 H Calculated Osmolality 273 Calcium 9.6 Magnesium 2.10 05/03/16 05/03/16 05/04/16 16:23 21:42 04:15 WBC RBC Hgb Hct MCV MCH MCHC RDW Plt Count MPV Neut % (Auto) Lymph % (Auto) Gordon % (Auto) Eos % (Auto) Baso % (Auto) Absolute Neuts (auto) Absolute Lymphs (auto) Seg Neuts % (Manual) Band Neutrophils % Lymphocytes % (Manual) Monocytes % (Manual) Absolute Neutrophils Absolute Lymphocytes Vacuolated Neuts Platelet Estimate RBC Morphology Puncture Site Right radial pH 7.420 pCO2 63.0 H pO2 64.0 L HCO3 40.9 H Total CO2 42.8 H Base Excess 13.5 H FiO2 % 2 lpm Specimen Drawn By Bkl Sodium Potassium Chloride Carbon Dioxide Anion Gap BUN Creatinine Estimated GFR (MDRD) Glucose POC Capillary Glucose 126 H 197 H Calculated Osmolality Calcium Magnesium 05/04/16 05/04/16 05:30 06:20 WBC RBC Hgb Hct MCV MCH MCHC RDW Plt Count MPV Neut % (Auto) Lymph % (Auto) Gordon % (Auto) Eos % (Auto) Baso % (Auto) Absolute Neuts (auto) Absolute Lymphs (auto) Seg Neuts % (Manual) Band Neutrophils % Lymphocytes % (Manual) Monocytes % (Manual) Absolute Neutrophils Absolute Lymphocytes Vacuolated Neuts Platelet Estimate RBC Morphology Puncture Site pH pCO2 pO2 HCO3 Total CO2 Base Excess FiO2 % Specimen Drawn By Sodium 139 Potassium 4.2 Chloride 94 L Carbon Dioxide 39 H Anion Gap 10 BUN 17 Creatinine 0.70 Estimated GFR (MDRD) > 60 Glucose 161 H POC Capillary Glucose 143 H Calculated Osmolality 273 Calcium 9.2 Magnesium Lab/DI/Studies Reviewed: Medications: Enoxaparin Sodium (Lovenox) 40 mg SQ 1800 [facility] Stop: 05/12/16 00:59 Last Admin: 05/03/16 17:34 Dose: 40 mg Levofloxacin/Dextrose (Levaquin 500 Mg) 500 mg in 100 mls @ 100 mls/hr IV Q24H [facility] Stop: 05/10/16 16:59 Last Admin: 05/03/16 18:36 Dose: 100 mls/hr Fluticasone Propionate (Flovent Hfa-220) 2 puff INH RTBID [facility] Stop: 05/12/16 16:59 Last Admin: 05/04/16 08:08 Dose: 2 puff Guaifenesin (Mucinex) 1,200 mg PO Q12H PRN PRN Reason: Congestion Stop: 05/11/16 16:59 Hydrochlorothiazide (Hydrochlorothiazide) 25 mg PO QAM [facility] Stop: 05/16/16 16:59 Last Admin: 05/04/16 08:21 Dose: 25 mg Insulin Human Regular (Humulin R) 0 units SQ ACHS [facility] PRN Reason: Protocol Stop: 05/11/16 16:59 Last Admin: 05/04/16 06:02 Dose: Not Given Methylprednisolone Sodium Succinate (Solu-Medrol) 60 mg IV Q6H [facility] Stop: 05/17/16 19:59 Last Admin: 05/04/16 08:30 Dose: 60 mg Morphine Sulfate (Morphine Sulfate) 2 mg IV Q4H PRN PRN Reason: Severe Pain Stop: 05/09/16 16:59 Last Admin: 05/04/16 06:05 Dose: 2 mg Nicotine (Nicoderm) 21 mg TOP Q24H [facility] Stop: 05/12/16 00:59 Last Admin: 05/04/16 01:24 Dose: 21 mg Oxycodone HCl (Oxycodone Immediate Release (Oxyir)) 5 mg PO Q4H PRN PRN Reason: Moderate to Severe Pain Stop: 05/05/16 19:42 Last Admin: 05/04/16 08:27 Dose: 5 mg Pantoprazole Sodium (Protonix) 40 mg PO 0600 [facility] Stop: 05/13/16 05:59 Last Admin: 05/04/16 06:02 Dose: 40 mg Promethazine HCl (Phenergan) 6.25 mg IV Q6H PRN; Protocol PRN Reason: Nausea/Vomiting - First Option Stop: 05/11/16 16:59 Acetaminophen (Tylenol Tablet) 650 mg PO Q6H PRN; Protocol PRN Reason: Mild Pain or Fever above 100.4 Stop: 05/11/16 16:59 Last Admin: 04/28/16 12:15 Dose: 650 mg Albuterol (Proventil, Ventolin) 3 ml NEB Q2H PRN PRN Reason: Wheezing Stop: 05/11/16 16:59 Last Admin: 04/29/16 20:29 Dose: 3 ml Albuterol/Ipratropium (Duoneb) 3 ml NEB RTQ6 [facility] Stop: 05/11/16 16:59 Last Admin: 05/04/16 08:06 Dose: 3 ml Alprazolam (Xanax) 0.5 mg PO Q6H PRN PRN Reason: Anxiety Stop: 05/12/16 14:09 Last Admin: 05/04/16 06:05 Dose: 0.5 mg Benzonatate (Tessalon) 200 mg PO TID PRN PRN Reason: Cough - First Option Stop: 05/11/16 16:59 Last Admin: 04/30/16 18:54 Dose: 200 mg Bupropion HCl (Wellbutrin-Sr) 150 mg PO BID [facility] Stop: 05/15/16 08:59 Last Admin: 05/04/16 08:21 Dose: 150 mg Ceftriaxone Sodium 1 gm/ (Dextrose) 100 mls @ 100 mls/hr IV Q24H [facility] Stop: 05/05/16 01:59 Last Admin: 05/04/16 01:24 Dose: 100 mls/hr Chlorphenir/Hydrocodone Polistirex (Tussionex) 5 ml PO BID PRN PRN Reason: Cough - Alternative Stop: 05/11/16 16:59 Last Admin: 05/03/16 18:38 Dose: 5 ml Clonazepam (Klonopin) 0.5 mg PO QHS PRN PRN Reason: Sleep or Insomnia Stop: 05/12/16 14:09 Last Admin: 05/04/16 01:30 Dose: 0.5 mg - Assessment/Plan (1) Acute exacerbation of chronic obstructive airways disease Acute J44.1 - CHRONIC OBSTRUCTIVE PULMONARY DISEASE W (ACUTE) EXACERBATION Comment/Plan: Patient feels somewhat better however still is wheezing and therefore I would continue Solu-Medrol 60 mg IV q.6 hours along with Rocephin and Levaquin antibiotics continue nebulizers DVT and GI prophylaxis and oxygen as needed patient may need BiPAP and would use it as needed . Her oxygenation seems to be stable at this time on 2 L nasal cannula patient was discussed in detail with Dr. Boogie (2) Acute on chronic respiratory failure Acute J96.20 - ACUTE AND CHR RESP FAILURE, UNSP W HYPOXIA OR HYPERCAPNIA hypoxia J96.21 - Acute and chronic respiratory failure with hypoxia Comment/Plan: Improving slowly continues to wheeze continue steroids nebulizers and antibiotics along with oxygen (3) Hypoxia Acute R09.02 - HYPOXEMIA Comment/Plan: Continue 2 L oxygen nasal cannula BiPAP could be used it if needed (4) Nicotine addiction Acute F17.200 - NICOTINE DEPENDENCE, UNSPECIFIED, UNCOMPLICATED cigarettes unspecified nicotine-induced disorder F17.219 - Nicotine dependence, cigarettes, with unspecified nicotine-induced disorders Comment/Plan: Patient was told in no uncertain terms to quit smoking she understands and agrees (5) Anxiety and depression Chronic F41.8 - OTHER SPECIFIED ANXIETY DISORDERS Comment/Plan: Continue the current supportive care I personally saw and evaluated the patient.: Yes Case Care Discussed with: Patient Education/Counseling Given To: Patient Education/Counseling Given Regarding: Diagnosis, Treatment, Prognosis, Follow Up , Disposition Plan
[2016-05-04] MEDS: FLUTICASONE PROPIONATE INH SCH ×2 (08:08→19:53)
[2016-05-04] MEDS: HYDROCHLOROTHIAZIDE 25 MG TAB PO SCH (08:21)
[2016-05-04] MEDS: BuPROPion 150 MG SR TAB PO SCH ×2 (08:21→21:45)
[2016-05-04] MEDS: OXYCODONE HCL 5 MG TABLET PO PRN ×3 (08:27→21:43)
[2016-05-04] MEDS: SERTRALINE HCL 100 MG TAB PO SCH (08:28)
--- NOTE | 2016-05-04 16:29 | GENMEDPROG ---
Subjective Note: Patient continues to be anxious and therefore get hypoxemic. She has very low exercise tolerance. Notes Reviewed: Yes Events from last night noted and discussed with Clinical Staff Current Medication List: Reviewed Currently: Reports: Cough (Nonproductive, paroxysmal), Wheezing, [place], SOB, Tobacco Use/Hx, Ambulating (Ambulates to the bathroom). Denies: Nausea and Vomiting, Fever/Chills DVT Prophylaxis: Yes - Physical Examination Vital Signs and I&O: Last Vital Signs Temp 98.4 F 05/04/16 13:38 Pulse 79 05/04/16 13:38 Resp 20 05/04/16 13:38 BP 150/8 L 05/04/16 13:38 Pulse Ox 94 05/04/16 13:38 Oxygen Pulse Oxygen Saturation 94 O2 Device Nasal Cannula Oxygen Flow Rate 2 Fraction of Inspired Oxygen ( FIO2) Intake & Output 05/01/16 05/02/16 05/03/16 05/04/16 23:59 23:59 23:59 23:59 Intake Total 8721 157 2232 171 Output Total 1100 2700 950 350 Balance 16 -7720 249 -179 Patient's weight 61.689 kg 62.227 kg 61.348 kg 61.348 kg General: Moderate distress (During spells of bronchospasm). negative: Alert, Oriented x3 HEENT: Normal, Anicteric Sclera, Mucous membr. moist/pink Neck: Full range of motion, Normal inspection, No Masses palpable Lymphatics: negative: Adenopathy Respiratory: Accessory Muscle Use, Wheezes, Excursion (decreased excursion but same as yesterday). negative: Retractions, Rhonchi Cardiovascular: Regular rate and rhythm, Normal S1, Normal S2. negative: LE Edema GI: Normal bowel sounds, Soft, Non tender, No masses Extremities/Musculoskeletal: Normal pulses, FROM Skin: Warm,Dry and Intact Neurological: Normal speech, Normal tone Psych/Mental Status: Appropriate, Cooperative, Anxious Lab/DI/Studies Reviewed: Abnormal Lab Results 05/03/16 05/03/16 05/04/16 16:23 21:42 04:15 pCO2 63.0 H pO2 64.0 L HCO3 40.9 H Total CO2 42.8 H Base Excess 13.5 H Chloride Carbon Dioxide Glucose POC Capillary Glucose 126 H 197 H 01/11/17 01/11/17 01/11/17 05:30 06:20 11:19 pCO2 pO2 HCO3 Total CO2 Base Excess Chloride 94 L Carbon Dioxide 39 H Glucose 161 H POC Capillary Glucose 143 H 190 H - Assessment (1) Acute exacerbation of chronic obstructive airways disease Acute J44.1 - CHRONIC OBSTRUCTIVE PULMONARY DISEASE W (ACUTE) EXACERBATION Comment/Plan: Continues to require significant oxygen supplementation with an extremely slow recovery. (2) Hypoxia Acute R09.02 - HYPOXEMIA Comment/Plan: No oxygen requirement prior to this admission. Will recheck prior to discharge when she ambulates. For now will use oxygen to keep sats greater than 92. Appreciate Dr. Merrill is help. (3) Nicotine addiction Acute F17.200 - NICOTINE DEPENDENCE, UNSPECIFIED, UNCOMPLICATED Qualifiers: Nicotine product type: cigarettes Substance use status: unspecified nicotine-induced disorder Qualified Code(s): F17.219 - Nicotine dependence, cigarettes, with unspecified nicotine-induced disorders Comment/Plan: Patient states that she is interested in quitting at discharge. I encouraged her to do so. She will use nicotine patch and medications. (4) Anxiety and depression Chronic F41.8 - OTHER SPECIFIED ANXIETY DISORDERS Comment/Plan: Much more short of breath and consequently much more anxious today. (5) Hypertension Chronic I10 - ESSENTIAL (PRIMARY) HYPERTENSION Qualifiers: Hypertension type: essential hypertension Comment/Plan: Continue home meds. (6) Tobacco abuse Chronic Z72.0 - TOBACCO USE Comment/Plan: Encourage patient to quit smoking. Offer nicotine patch, discuss vapor cigarettes as safer alternative. (7) Tobacco abuse counseling Acute Z71.6 - TOBACCO ABUSE COUNSELING Comment/Plan: Wearing nicotine patch. Interested in quitting smoking. - Plan Continue current care. Discharge home when oxygen requirements are decreased. Disposition Plan: Hopefully home Case Care Discussed with: Patient, Nursing Staff Education/Counseling Given To: Patient Education/Counseling Given Regarding: Diagnosis, Treatment, Prognosis, Follow Up , Disposition Plan Total Time: 45 minutes Critical Care: No Couseling Time (>50% in counseling/coordination): No
[2016-05-04] MEDS: ENOXAPARIN 40 MG/0.4 ML PFS SQ SCH (17:44)
[2016-05-04] MEDS: Levofloxacin 500 mg/100 ml D5W 500 MG/100 ML RTU IV SCH (17:44)
[2016-05-04] MEDS: BENZONATATE 100 MG PERLES PO PRN (19:36)
[2016-05-05] MEDS: MORPHINE 2 MG/ML INJECTION IV PRN ×3 (00:57→19:21)
[2016-05-05] MEDS: CEFTRIAXONE 1 GM in D5W 100 ML IV SCH (00:59)
[2016-05-05] MEDS: METHYLPREDNISOLONE 125 MG/2 ML VIAL IV SCH ×4 (00:59→19:21)
[2016-05-05] MEDS: NICOTINE 21 MG PATCH TOP SCH (00:59)
[2016-05-05] MEDS: Albuterol/Ipratropium Neb 3 ML NEB NEB SCH ×4 (02:10→19:57)
[2016-05-05] MEDS: TUSSIONEX 5 ML ORAL SYRINGE PO PRN (03:20)
[2016-05-05] MEDS: ALPRAZOLAM 0.5 MG TAB PO PRN ×3 (06:05→21:26)
[2016-05-05] MEDS: OXYCODONE HCL 5 MG TABLET PO PRN ×2 (06:05→16:40)
[2016-05-05] MEDS: SODIUM CHLORIDE 0.9% 3 ML FLUSH FLUSH SCH ×2 (06:06→17:50)
[2016-05-05] MEDS: PANTOPRAZOLE 40 MG TAB PO SCH (06:07)
[2016-05-05] MEDS: REGULAR INSULIN 100 UNITS/ML - 3 ML VIAL SQ SCH ×4 (06:08→21:10)
[2016-05-05 07:40] LABS: AUTOMATED LYMPH 5.1 % (17-44); AUTOMATED MONOCYTE 3.3 % (3-10); AUTOMATED NEUTROPHIL 91.6 % (45-76); MPV 7.5 fL (7.4-10.4)
[2016-05-05 07:59] LABS: BLOOD UREA NITROGEN 19 MG/DL (7-17); CALCIUM 9.3 MG/DL (8.4-10.2); CALCULATED OSMOLALITY 272 MOs/Kg (270-290); CHLORIDE 95 mEq/L (98-107); GLUCOSE 162 MG/DL (70-99); SODIUM LEVEL 138 mEq/L (137-146)
[2016-05-05] MEDS: SERTRALINE HCL 100 MG TAB PO SCH (08:14)
[2016-05-05] MEDS: BuPROPion 150 MG SR TAB PO SCH ×2 (08:14→21:42)
[2016-05-05] MEDS: HYDROCHLOROTHIAZIDE 25 MG TAB PO SCH (08:15)
[2016-05-05] MEDS: FLUTICASONE PROPIONATE INH SCH ×2 (08:22→20:00)
[2016-05-05] MEDS ORDERED: Medication Special Instructions SCH (11:00)
--- NOTE | 2016-05-05 14:10 | PCM.PULM ---
Chief Complaint: Patient has had uneventful overnight with no acute distress. Breathing is slowly improving. Patient has been up to chair and walking in room. On oxygen as needed current complaints: SOB,[place],cough,wheeze, chest congestion. Notes and medication list reviewed:yes DVT/GI prophylaxis:yes - Physical Examination Vital Signs and I&O: Last Vital Signs Temp 98.3 F 05/05/16 14:05 Pulse 102 05/05/16 14:05 Resp 18 05/05/16 14:05 BP 134/82 05/05/16 14:05 Pulse Ox 98 05/05/16 14:05 Oxygen Pulse Oxygen Saturation 98 O2 Device Nasal Cannula Oxygen Flow Rate 2 Fraction of Inspired Oxygen ( FIO2) Intake & Output 05/02/16 05/03/16 05/04/16 05/05/16 23:59 23:59 23:59 23:59 Intake Total 370 1199 512 591 Output Total 2700 950 900 500 Balance -2330 249 -388 91 Patient's weight 62.227 kg 61.348 kg 61.348 kg 60.81 kg General: Alert, Oriented x3, Cooperative, No acute distress, Fatigue Respiratory: Diminished, Rhonchi, Wheezes Cardiovascular: Regular rate, Regular rate and rhythm, Normal S1, No Gallops, Rubs/Murmurs, Normal S2 GI: Normal bowel sounds, Soft, Non tender, No hepatospenomegaly, No masses Extremities/Musculoskeletal: Normal pulses Skin: Warm,Dry and Intact, No rashes, No breakdown Neurological: Normal Steady Gait, Normal speech, Strength at 5/5 X4 ext, Cranial nerves 3-12 NL, Reflexes 2+ Psych/Mental Status: Normal Affect Result Diagrams: 05/05/16 07:22 05/05/16 07:22 Labs (last 24 hours): Laboratory Results - last 24 hr 05/04/16 05/04/16 05/05/16 16:29 20:13 05:44 WBC RBC Hgb Hct MCV MCH MCHC RDW Plt Count MPV Neut % (Auto) Lymph % (Auto) Dillon % (Auto) Eos % (Auto) Baso % (Auto) Absolute Neuts (auto) Absolute Lymphs (auto) Band Neutrophils % Lymphocytes % (Manual) Monocytes % (Manual) Eosinophils % (Manual) Absolute Lymphocytes Platelet Estimate RBC Morphology Sodium Potassium Chloride Carbon Dioxide Anion Gap BUN Creatinine Estimated GFR (MDRD) Glucose POC Capillary Glucose 123 H 151 H 123 H Calculated Osmolality Calcium 05/05/16 05/05/16 05/05/16 07:22 07:22 11:23 WBC 13.9 H RBC 4.58 Hgb 14.3 Hct 42.6 MCV 93 MCH 31.2 MCHC 33.6 RDW 13.4 Plt Count 296 MPV 7.5 Neut % (Auto) 91.6 H Lymph % (Auto) 5.1 L Dillon % (Auto) 3.3 Eos % (Auto) 0.0 Baso % (Auto) 0.0 Absolute Neuts (auto) 12.65 H Absolute Lymphs (auto) 0.70 Band Neutrophils % 93 H Lymphocytes % (Manual) 1 L Monocytes % (Manual) 5 Eosinophils % (Manual) 1 Absolute Lymphocytes 0.14 L Platelet Estimate Norm RBC Morphology Norm Sodium 138 Potassium 4.2 Chloride 95 L Carbon Dioxide 36 H Anion Gap 11 BUN 19 H Creatinine 0.50 L Estimated GFR (MDRD) > 60 Glucose 162 H POC Capillary Glucose 161 H Calculated Osmolality 272 Calcium 9.3 Lab/DI/Studies Reviewed: Medications: Enoxaparin Sodium (Lovenox) 40 mg SQ 1800 [facility] Stop: 05/12/16 00:59 Last Admin: 05/03/16 17:34 Dose: 40 mg Levofloxacin/Dextrose (Levaquin 500 Mg) 500 mg in 100 mls @ 100 mls/hr IV Q24H [facility] Stop: 05/10/16 16:59 Last Admin: 05/03/16 18:36 Dose: 100 mls/hr Fluticasone Propionate (Flovent Hfa-220) 2 puff INH RTBID [facility] Stop: 05/12/16 16:59 Last Admin: 05/04/16 08:08 Dose: 2 puff Guaifenesin (Mucinex) 1,200 mg PO Q12H PRN PRN Reason: Congestion Stop: 05/11/16 16:59 Hydrochlorothiazide (Hydrochlorothiazide) 25 mg PO QAM [facility] Stop: 05/16/16 16:59 Last Admin: 05/04/16 08:21 Dose: 25 mg Insulin Human Regular (Humulin R) 0 units SQ ACHS [facility] PRN Reason: Protocol Stop: 05/11/16 16:59 Last Admin: 05/04/16 06:02 Dose: Not Given Methylprednisolone Sodium Succinate (Solu-Medrol) 60 mg IV Q6H [facility] Stop: 05/17/16 19:59 Last Admin: 05/04/16 08:30 Dose: 60 mg Morphine Sulfate (Morphine Sulfate) 2 mg IV Q4H PRN PRN Reason: Severe Pain Stop: 05/09/16 16:59 Last Admin: 05/04/16 06:05 Dose: 2 mg Nicotine (Nicoderm) 21 mg TOP Q24H [facility] Stop: 05/12/16 00:59 Last Admin: 05/04/16 01:24 Dose: 21 mg Oxycodone HCl (Oxycodone Immediate Release (Oxyir)) 5 mg PO Q4H PRN PRN Reason: Moderate to Severe Pain Stop: 05/05/16 19:42 Last Admin: 05/04/16 08:27 Dose: 5 mg Pantoprazole Sodium (Protonix) 40 mg PO 0600 [facility] Stop: 05/13/16 05:59 Last Admin: 05/04/16 06:02 Dose: 40 mg Promethazine HCl (Phenergan) 6.25 mg IV Q6H PRN; Protocol PRN Reason: Nausea/Vomiting - First Option Stop: 05/11/16 16:59 Acetaminophen (Tylenol Tablet) 650 mg PO Q6H PRN; Protocol PRN Reason: Mild Pain or Fever above 100.4 Stop: 05/11/16 16:59 Last Admin: 04/28/16 12:15 Dose: 650 mg Albuterol (Proventil, Ventolin) 3 ml NEB Q2H PRN PRN Reason: Wheezing Stop: 05/11/16 16:59 Last Admin: 04/29/16 20:29 Dose: 3 ml Albuterol/Ipratropium (Duoneb) 3 ml NEB RTQ6 [facility] Stop: 05/11/16 16:59 Last Admin: 05/04/16 08:06 Dose: 3 ml Alprazolam (Xanax) 0.5 mg PO Q6H PRN PRN Reason: Anxiety Stop: 05/12/16 14:09 Last Admin: 05/04/16 06:05 Dose: 0.5 mg Benzonatate (Tessalon) 200 mg PO TID PRN PRN Reason: Cough - First Option Stop: 05/11/16 16:59 Last Admin: 04/30/16 18:54 Dose: 200 mg Bupropion HCl (Wellbutrin-Sr) 150 mg PO BID [facility] Stop: 05/15/16 08:59 Last Admin: 05/04/16 08:21 Dose: 150 mg Ceftriaxone Sodium 1 gm/ (Dextrose) 100 mls @ 100 mls/hr IV Q24H [facility] Stop: 05/05/16 01:59 Last Admin: 05/04/16 01:24 Dose: 100 mls/hr Chlorphenir/Hydrocodone Polistirex (Tussionex) 5 ml PO BID PRN PRN Reason: Cough - Alternative Stop: 05/11/16 16:59 Last Admin: 05/03/16 18:38 Dose: 5 ml Clonazepam (Klonopin) 0.5 mg PO QHS PRN PRN Reason: Sleep or Insomnia Stop: 05/12/16 14:09 Last Admin: 05/04/16 01:30 Dose: 0.5 mg - Assessment/Plan (1) Acute on chronic respiratory failure Acute J96.20 - ACUTE AND CHR RESP FAILURE, UNSP W HYPOXIA OR HYPERCAPNIA hypoxia J96.21 - Acute and chronic respiratory failure with hypoxia Comment/Plan: Patient is relatively stable. Breathing is slowly improving. Would continue IV steroids, IV Rocephin and Levaquin, Duo nebulizer treatment,supplement oxygen, DVT and GI prophylaxis. Continue full supportive care would get another blood gas in the morning would follow the patient closely (2) Acute exacerbation of chronic obstructive airways disease Acute J44.1 - CHRONIC OBSTRUCTIVE PULMONARY DISEASE W (ACUTE) EXACERBATION Comment/Plan: Slow improvement. Would continue IV steroids, IV antibiotics and oxygen. Her oxygenation seems to be stable at this time therefore continue oxygen PRN (3) Hypoxia Acute R09.02 - HYPOXEMIA Comment/Plan: Continue oxygen. May use BiPAP if needed (4) Nicotine addiction Acute F17.200 - NICOTINE DEPENDENCE, UNSPECIFIED, UNCOMPLICATED cigarettes unspecified nicotine-induced disorder F17.219 - Nicotine dependence, cigarettes, with unspecified nicotine-induced disorders Comment/Plan: Patient was told in no uncertain terms to quit smoking she understands and agrees (5) Anxiety and depression Chronic F41.8 - OTHER SPECIFIED ANXIETY DISORDERS Comment/Plan: Continue the current supportive care
[2016-05-05] MEDS: Levofloxacin 500 mg/100 ml D5W 500 MG/100 ML RTU IV SCH (16:40)
[2016-05-05] MEDS: ENOXAPARIN 40 MG/0.4 ML PFS SQ SCH (16:40)
--- NOTE | 2016-05-05 17:25 | GENMEDPROG ---
Subjective Note: Patient continues to desaturate very easily with minimal activity. She continues to have a significant amount of inflammation. Notes Reviewed: Yes Events from last night noted and discussed with Clinical Staff Currently: Reports: Cough (Nonproductive, paroxysmal), Wheezing, [place], SOB, Tobacco Use/Hx, Ambulating (Ambulates to the bathroom). Denies: Nausea and Vomiting, Fever/Chills DVT Prophylaxis: Yes - Physical Examination Vital Signs and I&O: Last Vital Signs Temp 98.3 F 05/05/16 14:05 Pulse 102 05/05/16 14:05 Resp 18 05/05/16 14:05 BP 134/82 05/05/16 14:05 Pulse Ox 98 05/05/16 14:05 Oxygen Pulse Oxygen Saturation 98 O2 Device Nasal Cannula Oxygen Flow Rate 2 Fraction of Inspired Oxygen ( FIO2) Intake & Output 05/02/16 05/03/16 05/04/16 05/05/16 23:59 23:59 23:59 23:59 Intake Total 370 1199 512 831 Output Total 2700 820 354 4338 Balance -2330 254 -388 -344 Patient's weight 62.227 kg 61.348 kg 61.348 kg 60.81 kg General: Moderate distress (During spells of bronchospasm). negative: Alert, Oriented x3 HEENT: Normal, Anicteric Sclera, Mucous membr. moist/pink Neck: Full range of motion, Normal inspection, No Masses palpable Lymphatics: negative: Adenopathy Respiratory: Accessory Muscle Use, Diminished, Wheezes. negative: Retractions, Rhonchi Cardiovascular: Regular rate and rhythm, Normal S1, Normal S2. negative: LE Edema GI: Normal bowel sounds, Soft, Non tender, No masses Extremities/Musculoskeletal: Normal pulses, FROM Skin: Warm,Dry and Intact Neurological: Normal speech, Normal tone Psych/Mental Status: Appropriate, Cooperative, Anxious Lab/DI/Studies Reviewed: Abnormal Lab Results 05/04/16 05/05/16 05/05/16 20:13 05:44 07:22 WBC Neut % (Auto) Lymph % (Auto) Absolute Neuts (auto) Band Neutrophils % Lymphocytes % (Manual) Absolute Lymphocytes Chloride 95 L Carbon Dioxide 36 H BUN 19 H Creatinine 0.50 L Glucose 162 H POC Capillary Glucose 151 H 123 H 05/05/16 05/05/16 05/05/16 07:22 11:23 16:03 WBC 13.9 H Neut % (Auto) 91.6 H Lymph % (Auto) 5.1 L Absolute Neuts (auto) 12.65 H Band Neutrophils % 93 H Lymphocytes % (Manual) 1 L Absolute Lymphocytes 0.14 L Chloride Carbon Dioxide BUN Creatinine Glucose POC Capillary Glucose 161 H 187 H - Assessment (1) Acute exacerbation of chronic obstructive airways disease Acute J44.1 - CHRONIC OBSTRUCTIVE PULMONARY DISEASE W (ACUTE) EXACERBATION Comment/Plan: Continues to require significant oxygen supplementation with an extremely slow recovery. Will try ambulating O2 sats on oxygen tomorrow morning. Patient does not use oxygen at home but sadly may require it at this point. (2) Hypoxia Acute R09.02 - HYPOXEMIA Comment/Plan: No oxygen requirement prior to this admission. Check ambulating O2 sats in a.m.. (3) Nicotine addiction Acute F17.200 - NICOTINE DEPENDENCE, UNSPECIFIED, UNCOMPLICATED Qualifiers: Nicotine product type: cigarettes Substance use status: unspecified nicotine-induced disorder Qualified Code(s): F17.219 - Nicotine dependence, cigarettes, with unspecified nicotine-induced disorders Comment/Plan: Patient states that she is interested in quitting at discharge. I encouraged her to do so. She will use nicotine patch and medications. (4) Anxiety and depression Chronic F41.8 - OTHER SPECIFIED ANXIETY DISORDERS Comment/Plan: Anxiety less today. (5) Hypertension Chronic I10 - ESSENTIAL (PRIMARY) HYPERTENSION Qualifiers: Hypertension type: essential hypertension Comment/Plan: Continue home meds. (6) Tobacco abuse Chronic Z72.0 - TOBACCO USE Comment/Plan: Encourage patient to quit smoking. Offer nicotine patch, discuss vapor cigarettes as safer alternative. (7) Tobacco abuse counseling Acute Z71.6 - TOBACCO ABUSE COUNSELING Comment/Plan: Wearing nicotine patch. Interested in quitting smoking. - Plan Continue current care. Discharge home when oxygen requirements are decreased. Disposition Plan: Hopefully home Case Care Discussed with: Patient, Consultants, Family Education/Counseling Given To: Patient, Family Member Education/Counseling Given Regarding: Diagnosis, Treatment, Prognosis Total Time: 45 minutes. Critical Care: No Couseling Time (>50% in counseling/coordination): No
[2016-05-05] MEDS: ACETAMINOPHEN 325 MG/TAB TABLET PO PRN (21:26)
[2016-05-05] MEDS: BENZONATATE 100 MG PERLES PO PRN (21:42)
[2016-05-05] MEDS ORDERED: NS 250 ML IV ONE (21:52)
[2016-05-06] MEDS: NICOTINE 21 MG PATCH TOP SCH (01:19)
[2016-05-06] MEDS: METHYLPREDNISOLONE 125 MG/2 ML VIAL IV SCH ×4 (01:20→19:45)
[2016-05-06] MEDS: TUSSIONEX 5 ML ORAL SYRINGE PO PRN (01:20)
[2016-05-06] MEDS: CEFTRIAXONE 1 GM in D5W 100 ML IV SCH (01:23)
[2016-05-06] MEDS: Albuterol/Ipratropium Neb 3 ML NEB NEB SCH ×4 (02:29→20:12)
[2016-05-06] MEDS: PANTOPRAZOLE 40 MG TAB PO SCH ×2 (05:32→06:02)
[2016-05-06] MEDS: SODIUM CHLORIDE 0.9% 3 ML FLUSH FLUSH SCH ×2 (05:32→17:25)
[2016-05-06] MEDS: BENZONATATE 100 MG PERLES PO PRN (06:02)
[2016-05-06] MEDS: ALPRAZOLAM 0.5 MG TAB PO PRN ×3 (06:02→19:41)
[2016-05-06] MEDS: MORPHINE 2 MG/ML INJECTION IV PRN ×3 (06:06→19:41)
[2016-05-06] MEDS: REGULAR INSULIN 100 UNITS/ML - 3 ML VIAL SQ SCH ×4 (06:07→23:19)
[2016-05-06 06:42] LABS: BLOOD UREA NITROGEN 19 MG/DL (7-17); CALCULATED OSMOLALITY 272 MOs/Kg (270-290); CHLORIDE 93 mEq/L (98-107); GLUCOSE 126 MG/DL (70-99); SODIUM LEVEL 139 mEq/L (137-146)
--- NOTE | 2016-05-06 07:55 | PCM.PULM ---
Chief Complaint: Respiratory failure acute on chronic COPD exacerbation Hypoxia Anxiety Tobacco abuse Patient still having SOB,[place],cough, sputum,wheeze, chest pain, chest congestion. Current medication list reviewed:yes Notes reviewed:yes - Physical Examination Vital Signs and I&O: Last Vital Signs Temp 98.5 F 05/06/16 05:54 Pulse 93 05/06/16 07:51 Resp 16 05/06/16 03:10 BP 156/93 05/06/16 05:54 Pulse Ox 92 05/06/16 07:51 Oxygen Pulse Oxygen Saturation 92 O2 Device Nasal Cannula Oxygen Flow Rate 2 Fraction of Inspired Oxygen ( FIO2) Intake & Output 05/03/16 05/04/16 05/05/16 05/06/16 23:59 23:59 23:59 23:59 Intake Total 1199 512 947 149 Output Total 382 654 6028 Balance 572 -535 -400 149 Patient's weight 61.348 kg 61.348 kg 60.81 kg 63.531 kg General: Alert, Oriented x3, No acute distress, Fatigue Respiratory: Diminished (bilatrally), Rhonchi, Wheezes Cardiovascular: Regular rate, Regular rate and rhythm, Normal S1, No Gallops, Rubs/Murmurs, Normal S2 GI: Normal bowel sounds, Soft, Non tender, No hepatospenomegaly Extremities/Musculoskeletal: Normal pulses Skin: Warm,Dry and Intact, No rashes, No breakdown, No significant lesion Neurological: Normal Steady Gait, Normal speech, Strength at 5/5 X4 ext, Normal tone, Cranial nerves 3-12 NL Psych/Mental Status: Appropriate Result Diagrams: 05/05/16 07:22 05/06/16 05:00 Labs (last 24 hours): Laboratory Results - last 24 hr 05/05/16 05/05/16 05/06/16 16:03 20:36 05:00 WBC RBC Hgb Hct MCV MCH MCHC RDW Plt Count MPV Neut % (Auto) Lymph % (Auto) Cottle % (Auto) Eos % (Auto) Baso % (Auto) Absolute Neuts (auto) Absolute Lymphs (auto) Band Neutrophils % Lymphocytes % (Manual) Monocytes % (Manual) Eosinophils % (Manual) Absolute Lymphocytes Platelet Estimate RBC Morphology Sodium 139 Potassium 4.3 Chloride 93 L Carbon Dioxide 39 H Anion Gap 11 BUN 19 H Creatinine 0.60 Estimated GFR (MDRD) > 60 Glucose 126 H POC Capillary Glucose 187 H 120 H Calculated Osmolality 272 Calcium 9.0 05/06/16 06:03 WBC RBC Hgb Hct MCV MCH MCHC RDW Plt Count MPV Neut % (Auto) Lymph % (Auto) Cottle % (Auto) Eos % (Auto) Baso % (Auto) Absolute Neuts (auto) Absolute Lymphs (auto) Band Neutrophils % Lymphocytes % (Manual) Monocytes % (Manual) Eosinophils % (Manual) Absolute Lymphocytes Platelet Estimate RBC Morphology Sodium Potassium Chloride Carbon Dioxide Anion Gap BUN Creatinine Estimated GFR (MDRD) Glucose POC Capillary Glucose 125 H Calculated Osmolality Calcium Lab/DI/Studies Reviewed: Medications: Enoxaparin Sodium (Lovenox) 40 mg SQ 1800 [facility] Stop: 05/12/16 00:59 Last Admin: 05/03/16 17:34 Dose: 40 mg Levofloxacin/Dextrose (Levaquin 500 Mg) 500 mg in 100 mls @ 100 mls/hr IV Q24H [facility] Stop: 05/10/16 16:59 Last Admin: 05/03/16 18:36 Dose: 100 mls/hr Fluticasone Propionate (Flovent Hfa-220) 2 puff INH RTBID [facility] Stop: 05/12/16 16:59 Last Admin: 05/04/16 08:08 Dose: 2 puff Guaifenesin (Mucinex) 1,200 mg PO Q12H PRN PRN Reason: Congestion Stop: 05/11/16 16:59 Hydrochlorothiazide (Hydrochlorothiazide) 25 mg PO QAM [facility] Stop: 05/16/16 16:59 Last Admin: 05/04/16 08:21 Dose: 25 mg Insulin Human Regular (Humulin R) 0 units SQ ACHS [facility] PRN Reason: Protocol Stop: 05/11/16 16:59 Last Admin: 05/04/16 06:02 Dose: Not Given Methylprednisolone Sodium Succinate (Solu-Medrol) 60 mg IV Q6H [facility] Stop: 05/17/16 19:59 Last Admin: 05/04/16 08:30 Dose: 60 mg Morphine Sulfate (Morphine Sulfate) 2 mg IV Q4H PRN PRN Reason: Severe Pain Stop: 05/09/16 16:59 Last Admin: 05/04/16 06:05 Dose: 2 mg Nicotine (Nicoderm) 21 mg TOP Q24H [facility] Stop: 05/12/16 00:59 Last Admin: 05/04/16 01:24 Dose: 21 mg Pantoprazole Sodium (Protonix) 40 mg PO 0600 [facility] Stop: 05/13/16 05:59 Last Admin: 05/04/16 06:02 Dose: 40 mg Promethazine HCl (Phenergan) 6.25 mg IV Q6H PRN; Protocol PRN Reason: Nausea/Vomiting - First Option Stop: 05/11/16 16:59 Albuterol (Proventil, Ventolin) 3 ml NEB Q2H PRN PRN Reason: Wheezing Stop: 05/11/16 16:59 Last Admin: 04/29/16 20:29 Dose: 3 ml Albuterol/Ipratropium (Duoneb) 3 ml NEB RTQ6 [facility] Stop: 05/11/16 16:59 Last Admin: 05/04/16 08:06 Dose: 3 ml Alprazolam (Xanax) 0.5 mg PO Q6H PRN PRN Reason: Anxiety Stop: 05/12/16 14:09 Last Admin: 05/04/16 06:05 Dose: 0.5 mg Benzonatate (Tessalon) 200 mg PO TID PRN PRN Reason: Cough - [facility] Stop: 05/11/16 16:59 Last Admin: 04/30/16 18:54 Dose: 200 mg Bupropion HCl (Wellbutrin-Sr) 150 mg PO BID [facility] Stop: 05/15/16 08:59 Last Admin: 05/04/16 08:21 Dose: 150 mg Ceftriaxone Sodium 1 gm/ (Dextrose) 100 mls @ 100 mls/hr IV Q24H [facility] Stop: 05/05/16 01:59 Last Admin: 05/04/16 01:24 Dose: 100 mls/hr Chlorphenir/Hydrocodone Polistirex (Tussionex) 5 ml PO BID PRN PRN Reason: Cough - Alternative Stop: 05/11/16 16:59 Last Admin: 05/03/16 18:38 Dose: 5 ml Clonazepam (Klonopin) 0.5 mg PO QHS PRN PRN Reason: Sleep or Insomnia Stop: 05/12/16 14:09 Last Admin: 05/04/16 01:30 Dose: 0.5 mg - Assessment/Plan (1) Acute on chronic respiratory failure Acute J96.20 - ACUTE AND CHR RESP FAILURE, UNSP W HYPOXIA OR HYPERCAPNIA hypoxia J96.21 - Acute and chronic respiratory failure with hypoxia Comment/Plan: Patient remains on Rocephin and Levaquin with some very slow improvement in her breathing along with Solu-Medrol 60 mg IV q.6 hours with oxygen nebulizers and other supportive care patient may be a good candidate for an LTAC facility such as [facility] as it seems like she is going to be a little while before she can get out of the hospital I would continue other supportive care and would follow the patient closely for development of complications would repeat a chest x-ray and a blood gas in the morning (2) Acute exacerbation of chronic obstructive airways disease Acute J44.1 - CHRONIC OBSTRUCTIVE PULMONARY DISEASE W (ACUTE) EXACERBATION Comment/Plan: Slow improvement. Would continue IV steroids, IV antibiotics and oxygen. Her oxygenation seems to be stable at this time therefore continue oxygen PRN (3) Hypoxia Acute R09.02 - HYPOXEMIA Comment/Plan: Continue oxygen. Patient can use BiPAP if needed (4) Nicotine addiction Acute F17.200 - NICOTINE DEPENDENCE, UNSPECIFIED, UNCOMPLICATED cigarettes unspecified nicotine-induced disorder F17.219 - Nicotine dependence, cigarettes, with unspecified nicotine-induced disorders Comment/Plan: Patient was told in no uncertain terms to quit smoking she understands and agrees patient is already on nicotine patch and wants to stop smoking once she goes home (5) Anxiety and depression Chronic F41.8 - OTHER SPECIFIED ANXIETY DISORDERS Comment/Plan: Continue the current supportive care
[2016-05-06] MEDS: FLUTICASONE PROPIONATE INH SCH ×2 (08:31→20:13)
[2016-05-06] MEDS: HYDROCHLOROTHIAZIDE 25 MG TAB PO SCH (08:53)
[2016-05-06] MEDS: SERTRALINE HCL 100 MG TAB PO SCH (08:53)
[2016-05-06] MEDS: BuPROPion 150 MG SR TAB PO SCH ×2 (08:54→23:19)
[2016-05-06] MEDS: Levofloxacin 500 mg/100 ml D5W 500 MG/100 ML RTU IV SCH (17:25)
[2016-05-06] MEDS: ENOXAPARIN 40 MG/0.4 ML PFS SQ SCH (17:25)
[2016-05-06] MEDS ORDERED: FUROSEMIDE 40 MG/4 ML VIAL IV ONE (18:38)
--- NOTE | 2016-05-06 18:41 | GENMEDPROG ---
Subjective Note: Patient in bed responsive follows command. Still visibly short of breath with audible rhonchi some wheezes. Dyspneic with minimal exertion. Coughing producing fair amount thick sputum no hemoptysis. Generally weak tired and very fatigued Notes Reviewed: Yes Events from last night noted and discussed with Clinical Staff Current Medication List: Reviewed Currently: Reports: Cough (Nonproductive, paroxysmal), Wheezing, [place], SOB, Tobacco Use/Hx, Reflux Sx, Ambulating (Ambulates to the bathroom). Denies: Nausea and Vomiting, Fever/Chills DVT Prophylaxis: Yes - Physical Examination Vital Signs and I&O: Last Vital Signs Temp 98.2 F 05/06/16 18:02 Pulse 99 05/06/16 18:02 Resp 20 05/06/16 18:02 BP 144/84 05/06/16 18:02 Pulse Ox 94 05/06/16 18:02 Oxygen Pulse Oxygen Saturation 94 O2 Device Room Air Oxygen Flow Rate 2 Fraction of Inspired Oxygen ( FIO2) Intake & Output 05/03/16 05/04/16 05/05/16 05/06/16 23:59 23:59 23:59 23:59 Intake Total 1199 512 947 504 Output Total 603 784 7650 1100 Balance 267 -388 -453 -596 Patient's weight 61.348 kg 61.348 kg 60.81 kg 63.531 kg General: Cooperative, Mild distress. negative: Alert, Oriented x3 HEENT: Normal, PERRLA, EOMI, Anicteric Sclera, Mucous membr. moist/pink Neck: Full range of motion, Normal inspection, No Masses palpable Lymphatics: Normal. negative: Adenopathy Respiratory: Accessory Muscle Use, Diminished, Rhonchi, Wheezes. negative: Retractions Cardiovascular: Regular rate and rhythm, Normal S1, Normal S2. negative: LE Edema GI: Normal bowel sounds, Soft, Non tender, No masses Extremities/Musculoskeletal: Normal pulses, FROM Skin: Warm,Dry and Intact Neurological: Normal speech, Normal tone Psych/Mental Status: Appropriate, Cooperative, Anxious Lab/DI/Studies Reviewed: Last Vital Signs Temp 98.2 F 05/06/16 18:02 Pulse 99 05/06/16 18:02 Resp 20 05/06/16 18:02 BP 144/84 05/06/16 18:02 Pulse Ox 94 05/06/16 18:02 05/05/16 07:22 05/06/16 05:00 - Assessment (1) Acute on chronic respiratory failure Acute J96.20 - ACUTE AND CHR RESP FAILURE, UNSP W HYPOXIA OR HYPERCAPNIA Qualifiers: Respiratory failure complication: hypoxia Qualified Code(s): J96.21 - Acute and chronic respiratory failure with hypoxia Comment/Plan: Continue O2 nebs and pulmonary toilet. Monitor pulmonary status. Follow by sausage mixer. (2) Acute exacerbation of chronic obstructive airways disease Acute J44.1 - CHRONIC OBSTRUCTIVE PULMONARY DISEASE W (ACUTE) EXACERBATION Comment/Plan: Continue nebulized bronchodilators and IV steroids, continue mucolytics and aggressive pulmonary toilet. (3) Bronchopneumonia Acute J18.0 - BRONCHOPNEUMONIA, UNSPECIFIED ORGANISM Comment/Plan: Continue IV antibiotics. (4) GERD (gastroesophageal reflux disease) Acute K21.9 - GASTRO-ESOPHAGEAL REFLUX DISEASE WITHOUT ESOPHAGITIS Qualifiers: Esophagitis presence: without esophagitis Qualified Code(s): K21.9 - Gastro -esophageal reflux disease without esophagitis Comment/Plan: Continue PPI (5) Anxiety and depression Chronic F41.8 - OTHER SPECIFIED ANXIETY DISORDERS Comment/Plan: Stable on home meds (6) Hypertension Chronic I10 - ESSENTIAL (PRIMARY) HYPERTENSION Qualifiers: Hypertension type: essential hypertension Comment/Plan: Continue home meds. Case Care Discussed with: Patient, Consultants, Nursing Staff, Respiratory Therapy, Mud Cleaner Operator Education/Counseling Given To: Patient Education/Counseling Given Regarding: Diagnosis, Treatment, Prognosis, Follow Up Total Time: 45 min . Critical Care: No Code: 16795 (12+)
[2016-05-07] MEDS: NICOTINE 21 MG PATCH TOP SCH (00:04)
[2016-05-07] MEDS: TUSSIONEX 5 ML ORAL SYRINGE PO PRN ×2 (00:06→20:04)
[2016-05-07] MEDS: Albuterol/Ipratropium Neb 3 ML NEB NEB SCH ×4 (01:21→19:55)
[2016-05-07] MEDS: CEFTRIAXONE 1 GM in D5W 100 ML IV SCH (02:32)
[2016-05-07] MEDS: METHYLPREDNISOLONE 125 MG/2 ML VIAL IV SCH ×3 (02:34→13:13)
[2016-05-07 04:19] LABS: ALLEN'S TEST PASS; BEb 17.4 (+/- 2); TCO2 46.3 MMOL/L (23-27)
[2016-05-07 04:22] LABS: ABG Draw Site Right Radial
[2016-05-07] MEDS: SODIUM CHLORIDE 0.9% 3 ML FLUSH FLUSH SCH ×2 (06:01→17:13)
[2016-05-07] MEDS: REGULAR INSULIN 100 UNITS/ML - 3 ML VIAL SQ SCH ×4 (06:01→20:45)
[2016-05-07] MEDS: BuPROPion 150 MG SR TAB PO SCH ×2 (08:34→20:44)
[2016-05-07] MEDS: SERTRALINE HCL 100 MG TAB PO SCH (08:34)
[2016-05-07] MEDS: PANTOPRAZOLE 40 MG TAB PO SCH (08:38)
[2016-05-07 08:49] LABS: BLOOD UREA NITROGEN 23 MG/DL (7-17); CALCULATED OSMOLALITY 270 MOs/Kg (270-290); CHLORIDE 93 mEq/L (98-107); GLUCOSE 128 MG/DL (70-99); SODIUM LEVEL 137 mEq/L (137-146)
[2016-05-07] MEDS: FLUTICASONE PROPIONATE INH SCH ×2 (09:12→19:58)
--- NOTE | 2016-05-07 10:01 | PCM.PULM ---
Chief Complaint: Patient is feeling better this morning. Breathing is relatively stable. Still coughing and her wheezing is improving some . On nasal cannula oxygen Medication list reviewed:yes Notes reviewed:yes DVT prophylaxis:yes - Physical Examination Vital Signs and I&O: Last Vital Signs Temp 98.6 F 05/07/16 05:15 Pulse 84 05/07/16 05:15 Resp 16 05/07/16 05:15 BP 145/86 05/07/16 05:15 Pulse Ox 97 05/07/16 08:10 Oxygen Pulse Oxygen Saturation 97 O2 Device Nasal Cannula Oxygen Flow Rate 2 Fraction of Inspired Oxygen ( FIO2) Intake & Output 05/04/16 05/05/16 05/06/16 05/07/16 23:59 23:59 23:59 23:59 Intake Total 512 947 504 Output Total 900 9971 5920 600 Balance -388 -453 -2196 -600 Patient's weight 61.348 kg 60.81 kg 63.531 kg 63.758 kg General: Alert, Oriented x3, Cooperative, No acute distress, Fatigue Respiratory: Diminished, Rhonchi (improved), Wheezes (improved) Cardiovascular: Regular rate, Regular rate and rhythm, Normal S1, No Gallops, Rubs/Murmurs, Normal S2 GI: Normal bowel sounds, Soft, Non tender, No hepatospenomegaly, No masses Extremities/Musculoskeletal: Normal pulses Skin: Warm,Dry and Intact, No rashes, No breakdown, No significant lesion Neurological: Normal Steady Gait, Normal speech, Strength at 5/5 X4 ext, Cranial nerves 3-12 NL Psych/Mental Status: Normal Affect Result Diagrams: 05/05/16 07:22 05/07/16 08:11 Labs (last 24 hours): Laboratory Results - last 24 hr 05/07/16 05/07/16 05/07/16 04:14 05:13 08:11 Puncture Site Right radial pH 7.470 H pCO2 61.0 H pO2 58.0 L HCO3 44.4 H Total CO2 46.3 H Base Excess 17.4 H FiO2 % 21% Specimen Drawn By Anthony Sodium 137 Potassium 4.3 Chloride 93 L Carbon Dioxide 40 H Anion Gap 8 BUN 23 H Creatinine 0.60 Estimated GFR (MDRD) > 60 Glucose 128 H POC Capillary Glucose 134 H Calculated Osmolality 270 Calcium 9.0 Lab/DI/Studies Reviewed: Chest x-ray Chest x-ray was seen personally there is no acute infiltrate minimal interstitial thickening was noted in the bases hyperinflated lung suazo Medications Enoxaparin Sodium (Lovenox) 40 mg SQ 1800 [facility] Stop: 05/12/16 00:59 Last Admin: 05/03/16 17:34 Dose: 40 mg Levofloxacin/Dextrose (Levaquin 500 Mg) 500 mg in 100 mls @ 100 mls/hr IV Q24H [facility] Stop: 05/10/16 16:59 Last Admin: 05/03/16 18:36 Dose: 100 mls/hr Fluticasone Propionate (Flovent Hfa-220) 2 puff INH RTBID [facility] Stop: 05/12/16 16:59 Last Admin: 05/04/16 08:08 Dose: 2 puff Guaifenesin (Mucinex) 1,200 mg PO Q12H PRN PRN Reason: Congestion Stop: 05/11/16 16:59 Hydrochlorothiazide (Hydrochlorothiazide) 25 mg PO QAM [facility] Stop: 05/16/16 16:59 Last Admin: 05/04/16 08:21 Dose: 25 mg Insulin Human Regular (Humulin R) 0 units SQ ACHS [facility] PRN Reason: Protocol Stop: 05/11/16 16:59 Last Admin: 05/04/16 06:02 Dose: Not Given Methylprednisolone Sodium Succinate (Solu-Medrol) 60 mg IV Q6H [facility] Stop: 05/17/16 19:59 Last Admin: 05/04/16 08:30 Dose: 60 mg Morphine Sulfate (Morphine Sulfate) 2 mg IV Q4H PRN PRN Reason: Severe Pain Stop: 05/09/16 16:59 Last Admin: 05/04/16 06:05 Dose: 2 mg Nicotine (Nicoderm) 21 mg TOP Q24H [facility] Stop: 05/12/16 00:59 Last Admin: 05/04/16 01:24 Dose: 21 mg Oxycodone HCl (Oxycodone Immediate Release (Oxyir)) 5 mg PO Q4H PRN PRN Reason: Moderate to Severe Pain Stop: 05/05/16 19:42 Last Admin: 05/04/16 08:27 Dose: 5 mg Pantoprazole Sodium (Protonix) 40 mg PO 0600 [facility] Stop: 05/13/16 05:59 Last Admin: 05/04/16 06:02 Dose: 40 mg Promethazine HCl (Phenergan) 6.25 mg IV Q6H PRN; Protocol PRN Reason: Nausea/Vomiting - [facility] Stop: 05/11/16 16:59 Acetaminophen (Tylenol Tablet) 650 mg PO Q6H PRN; Protocol PRN Reason: Mild Pain or Fever above 100.4 Stop: 05/11/16 16:59 Last Admin: 04/28/16 12:15 Dose: 650 mg Albuterol (Proventil, Ventolin) 3 ml NEB Q2H PRN PRN Reason: Wheezing Stop: 05/11/16 16:59 Last Admin: 04/29/16 20:29 Dose: 3 ml Albuterol/Ipratropium (Duoneb) 3 ml NEB RTQ6 [facility] Stop: 05/11/16 16:59 Last Admin: 05/04/16 08:06 Dose: 3 ml Alprazolam (Xanax) 0.5 mg PO Q6H PRN PRN Reason: Anxiety Stop: 05/12/16 14:09 Last Admin: 05/04/16 06:05 Dose: 0.5 mg Benzonatate (Tessalon) 200 mg PO TID PRN PRN Reason: Cough - [facility] Stop: 05/11/16 16:59 Last Admin: 04/30/16 18:54 Dose: 200 mg Bupropion HCl (Wellbutrin-Sr) 150 mg PO BID [facility] Stop: 05/15/16 08:59 Last Admin: 05/04/16 08:21 Dose: 150 mg Chlorphenir/Hydrocodone Polistirex (Tussionex) 5 ml PO BID PRN PRN Reason: Cough - Alternative Stop: 05/11/16 16:59 Last Admin: 05/03/16 18:38 Dose: 5 ml Clonazepam (Klonopin) 0.5 mg PO QHS PRN PRN Reason: Sleep or Insomnia Stop: 05/12/16 14:09 Last Admin: 05/04/16 01:30 Dose: 0.5 mg - Assessment/Plan (1) Acute on chronic respiratory failure Acute J96.20 - ACUTE AND CHR RESP FAILURE, UNSP W HYPOXIA OR HYPERCAPNIA hypoxia J96.21 - Acute and chronic respiratory failure with hypoxia Comment/Plan: Patient is relatively stable. Breathing is improving slowly and wheezing is also improving there fore i would cut the steroid down. Continue IV antibiotics , duo nebulizer treatment, DVT/GI prophylaxis and other supportive care. (2) Acute exacerbation of chronic obstructive airways disease Acute J44.1 - CHRONIC OBSTRUCTIVE PULMONARY DISEASE W (ACUTE) EXACERBATION Comment/Plan: Slow improvement. Would cut IV steroids to 40mg Q8h. Would continue supplemental oxygen, neb treatment along other supportive care (3) Hypoxia Acute R09.02 - HYPOXEMIA Comment/Plan: Continue oxygen prn (4) Nicotine addiction Acute F17.200 - NICOTINE DEPENDENCE, UNSPECIFIED, UNCOMPLICATED cigarettes unspecified nicotine-induced disorder F17.219 - Nicotine dependence, cigarettes, with unspecified nicotine-induced disorders Comment/Plan: Patient was told in no uncertain terms to quit smoking she understands and agrees patient is already on nicotine patch and wants to stop smoking once she goes home (5) Anxiety and depression Chronic F41.8 - OTHER SPECIFIED ANXIETY DISORDERS Comment/Plan: stable continue current therapy at this time
[2016-05-07] MEDS: ALPRAZOLAM 0.5 MG TAB PO PRN ×2 (10:08→17:13)
[2016-05-07] MEDS: OXYCODONE HCL 5 MG TABLET PO PRN ×2 (10:09→17:13)
--- NOTE | 2016-05-07 10:28 | DIRPT ---
CLINICAL DATA: Acute exacerbation of COPD. Subsequent encounter. EXAM: CHEST 2 VIEW COMPARISON: 05/01/2016. FINDINGS: Normal heart, mediastinum and sheba. Lungs are hyperexpanded. Relative lucency in the upper lobes is consistent with emphysema. No lung consolidation or edema. No pleural effusion or pneumothorax. Bony thorax is intact. IMPRESSION: 1. No acute cardiopulmonary disease. 2. Stable changes of COPD/emphysema. Electronically Signed By: Dandy Ledbetter M.D. On: 05/07/2016 10:25
[2016-05-07] MEDS: ENOXAPARIN 40 MG/0.4 ML PFS SQ SCH (17:13)
[2016-05-07] MEDS: Levofloxacin 500 mg/100 ml D5W 500 MG/100 ML RTU IV SCH (17:13)
[2016-05-07] MEDS ORDERED: FUROSEMIDE 40 MG/4 ML VIAL IV ONE (17:43)
--- NOTE | 2016-05-07 17:46 | GENMEDPROG ---
Subjective Note: Patient bed responsive follows commands. Looks better and feels better. Breathing better. Still dyspneic with minimal physical exertion still coughing producing fair amount thick sputum no hemoptysis Notes Reviewed: Yes Events from last night noted and discussed with Clinical Staff Current Medication List: Reviewed Currently: Reports: Cough (Nonproductive, paroxysmal), Wheezing, [place], SOB, Sputum, Tobacco Use/Hx, Reflux Sx, Ambulating (Ambulates to the bathroom). Denies: Nausea and Vomiting, Fever/Chills DVT Prophylaxis: Yes - Physical Examination Vital Signs and I&O: Last Vital Signs Temp 98.5 F 05/07/16 13:30 Pulse 101 05/07/16 13:30 Resp 20 05/07/16 13:30 BP 138/86 05/07/16 13:30 Pulse Ox 91 05/07/16 13:30 Oxygen Pulse Oxygen Saturation 91 O2 Device Nasal Cannula Oxygen Flow Rate 2 Fraction of Inspired Oxygen ( FIO2) Intake & Output 05/04/16 05/05/16 05/06/16 05/07/16 23:59 23:59 23:59 23:59 Intake Total 512 947 504 336 Output Total 900 1400 2700 600 Balance -388 -453 -2196 -264 Patient's weight 61.348 kg 60.81 kg 63.531 kg 63.758 kg General: Alert, Oriented x3, Cooperative, No acute distress HEENT: Normal, PERRLA, EOMI, Anicteric Sclera, Mucous membr. moist/pink Neck: Full range of motion, Normal inspection, No Masses palpable Lymphatics: Normal. negative: Adenopathy Respiratory: Accessory Muscle Use, Diminished, Rhonchi, Wheezes. negative: Retractions Cardiovascular: Regular rate and rhythm, Normal S1, Normal S2. negative: LE Edema GI: Normal bowel sounds, Soft, Non tender, No masses Extremities/Musculoskeletal: Normal pulses, FROM Skin: Warm,Dry and Intact Neurological: Normal speech, Normal tone Psych/Mental Status: Appropriate, Cooperative, Anxious Lab/DI/Studies Reviewed: Allergies No Known Allergies Allergy (Verified 01/06/16 19:03) 05/05/16 07:22 05/07/16 08:11 Abnormal Lab Results 05/06/16 05/07/16 05/07/16 22:37 04:14 05:13 pH 7.470 H pCO2 61.0 H pO2 58.0 L HCO3 44.4 H Total CO2 46.3 H Base Excess 17.4 H Chloride Carbon Dioxide BUN Glucose POC Capillary Glucose 166 H 134 H 05/07/16 05/07/16 05/07/16 08:11 11:21 16:40 pH pCO2 pO2 HCO3 Total CO2 Base Excess Chloride 93 L Carbon Dioxide 40 H BUN 23 H Glucose 128 H POC Capillary Glucose 162 H 188 H - Assessment (1) Acute on chronic respiratory failure Acute J96.20 - ACUTE AND CHR RESP FAILURE, UNSP W HYPOXIA OR HYPERCAPNIA Qualifiers: Respiratory failure complication: hypoxia Qualified Code(s): J96.21 - Acute and chronic respiratory failure with hypoxia Comment/Plan: Continue O2 nebs and pulmonary toilet. Monitor pulmonary status. Follow by sand operator. Slow progress on maximal pulmonary therapy (2) Acute exacerbation of chronic obstructive airways disease Acute J44.1 - CHRONIC OBSTRUCTIVE PULMONARY DISEASE W (ACUTE) EXACERBATION Comment/Plan: Continue nebulized bronchodilators and IV steroids, continue mucolytics and aggressive pulmonary toilet. (3) Bronchopneumonia Acute J18.0 - BRONCHOPNEUMONIA, UNSPECIFIED ORGANISM Comment/Plan: Continue IV antibiotics. (4) GERD (gastroesophageal reflux disease) Acute K21.9 - GASTRO-ESOPHAGEAL REFLUX DISEASE WITHOUT ESOPHAGITIS Qualifiers: Esophagitis presence: without esophagitis Qualified Code(s): K21.9 - Gastro -esophageal reflux disease without esophagitis Comment/Plan: Continue PPI (5) Anxiety and depression Chronic F41.8 - OTHER SPECIFIED ANXIETY DISORDERS Comment/Plan: Stable on home meds (6) Hypertension Chronic I10 - ESSENTIAL (PRIMARY) HYPERTENSION Qualifiers: Hypertension type: essential hypertension Comment/Plan: Continue home meds. (7) Nicotine addiction Acute F17.200 - NICOTINE DEPENDENCE, UNSPECIFIED, UNCOMPLICATED Qualifiers: Nicotine product type: cigarettes Substance use status: unspecified nicotine-induced disorder Qualified Code(s): F17.219 - Nicotine dependence, cigarettes, with unspecified nicotine-induced disorders Comment/Plan: Strongly encouraged patient to refrain from resuming smoking Case Care Discussed with: Patient, Consultants, Nursing Staff, Respiratory Therapy, Cloth Covered Helmet Puller Education/Counseling Given To: Patient Education/Counseling Given Regarding: Diagnosis, Treatment, Prognosis, Follow Up Total Time: 45 min . Critical Care: No Code: 38411 (12+)
[2016-05-07] MEDS: METHYLPREDNISOLONE 40 MG/1 ML VIAL IV SCH (20:44)
[2016-05-07] MEDS: MORPHINE 2 MG/ML INJECTION IV PRN (20:54)
[2016-05-08] MEDS: Albuterol/Ipratropium Neb 3 ML NEB NEB SCH ×2 (01:33→08:13)
[2016-05-08] MEDS: OXYCODONE HCL 5 MG TABLET PO PRN ×2 (01:59→09:16)
[2016-05-08] MEDS: NICOTINE 21 MG PATCH TOP SCH (01:59)
[2016-05-08] MEDS: ALPRAZOLAM 0.5 MG TAB PO PRN ×2 (01:59→09:16)
[2016-05-08] MEDS: PANTOPRAZOLE 40 MG TAB PO SCH (05:24)
[2016-05-08] MEDS: MORPHINE 2 MG/ML INJECTION IV PRN (05:24)
[2016-05-08] MEDS: SODIUM CHLORIDE 0.9% 3 ML FLUSH FLUSH SCH (05:25)
[2016-05-08] MEDS: METHYLPREDNISOLONE 40 MG/1 ML VIAL IV SCH (05:25)
[2016-05-08 06:04] VITALS: BMI 22.4
[2016-05-08 06:06] VITALS: PULSE 95
[2016-05-08] MEDS: REGULAR INSULIN 100 UNITS/ML - 3 ML VIAL SQ SCH (06:26)
[2016-05-08] MEDS: FLUTICASONE PROPIONATE INH SCH (08:14)
[2016-05-08] MEDS: BuPROPion 150 MG SR TAB PO SCH (08:24)
[2016-05-08] MEDS: SERTRALINE HCL 100 MG TAB PO SCH (08:24)
[2016-05-08 09:04] LABS: BLOOD UREA NITROGEN 26 MG/DL (7-17); CALCIUM 8.8 MG/DL (8.4-10.2); CALCULATED OSMOLALITY 272 MOs/Kg (270-290); CHLORIDE 95 mEq/L (98-107); GLUCOSE 84 MG/DL (70-99); SODIUM LEVEL 139 mEq/L (137-146)
[2016-05-08 09:34] VITALS: BP 134/75; TEMP 97
--- NOTE | 2016-05-08 10:09 | PCM.PULM ---
Chief Complaint: Patient in bed breathing is getting better. She is still having some cough, sputum, wheeze and gets short of breath some when she walks. She has been ambulating in hallway more and uses oxygen as needed Current medication list reviewed:yes Notes reviewed:yes, Events from last night noted and discussed with Clinical Staff DVT/GI prophylaxis:yes - Physical Examination Vital Signs and I&O: Last Vital Signs Temp 97 F L 05/08/16 09:32 Pulse 95 05/08/16 09:32 Resp 20 05/08/16 09:32 BP 134/75 05/08/16 09:32 Pulse Ox 93 05/08/16 09:32 Oxygen Pulse Oxygen Saturation 93 O2 Device Room Air Oxygen Flow Rate 2 Fraction of Inspired Oxygen ( FIO2) Intake & Output 05/05/16 05/06/16 05/07/16 05/08/16 23:59 23:59 23:59 23:59 Intake Total 802 725 6328 Output Total 1400 2700 1600 1000 Balance -453 -2196 -344 -1000 Patient's weight 60.81 kg 63.531 kg 63.758 kg 63.049 kg General: Alert, Oriented x3, No acute distress Respiratory: Diminished (bilatral bases), Wheezes (Occasional bilaterally) Cardiovascular: Regular rate, Regular rate and rhythm, Normal S1, No Gallops, Rubs/Murmurs, Normal S2 GI: Normal bowel sounds, Soft, Non tender, No hepatospenomegaly, No masses Extremities/Musculoskeletal: Normal pulses Skin: Warm,Dry and Intact, No rashes, No breakdown, No significant lesion Neurological: Normal Steady Gait, Normal speech, Strength at 5/5 X4 ext, Normal tone, Cranial nerves 3-12 NL, Reflexes 2+ Psych/Mental Status: Appropriate, Cooperative Result Diagrams: 05/05/16 07:22 05/08/16 07:35 Labs (last 24 hours): Laboratory Results - last 24 hr 05/08/16 05/08/16 06:07 07:35 Sodium 139 Potassium 3.7 Chloride 95 L Carbon Dioxide 37 H Anion Gap 11 BUN 26 H Creatinine 0.60 Estimated GFR (MDRD) > 60 Glucose 84 POC Capillary Glucose 130 H Calculated Osmolality 272 Calcium 8.8 Lab/DI/Studies Reviewed: Medications: Methylprednisolone Sodium Succinate (Solu-Medrol) 40 mg IV Q8H [facility] Stop: 03/08/16 01:59 Last Admin: 02/23/16 03:15 Dose: 40 mg Fluticasone Propionate (Flovent Hfa-220) 2 puff INH RTBID [facility] Stop: 05/12/16 16:59 Last Admin: 05/04/16 08:08 Dose: 2 puff Guaifenesin (Mucinex) 1,200 mg PO Q12H PRN PRN Reason: Congestion Stop: 05/11/16 16:59 Hydrochlorothiazide (Hydrochlorothiazide) 25 mg PO QAM [facility] Stop: 05/16/16 16:59 Last Admin: 05/04/16 08:21 Dose: 25 mg Insulin Human Regular (Humulin R) 0 units SQ ACHS [facility] PRN Reason: Protocol Stop: 05/11/16 16:59 Last Admin: 05/04/16 06:02 Dose: Not Given Morphine Sulfate (Morphine Sulfate) 2 mg IV Q4H PRN PRN Reason: Severe Pain Stop: 05/09/16 16:59 Last Admin: 05/04/16 06:05 Dose: 2 mg Nicotine (Nicoderm) 21 mg TOP Q24H [facility] Stop: 05/12/16 00:59 Last Admin: 05/04/16 01:24 Dose: 21 mg Oxycodone HCl (Oxycodone Immediate Release (Oxyir)) 5 mg PO Q4H PRN PRN Reason: Moderate to Severe Pain Stop: 05/05/16 19:42 Last Admin: 05/04/16 08:27 Dose: 5 mg Pantoprazole Sodium (Protonix) 40 mg PO 0600 [facility] Stop: 05/13/16 05:59 Last Admin: 05/04/16 06:02 Dose: 40 mg Promethazine HCl (Phenergan) 6.25 mg IV Q6H PRN; Protocol PRN Reason: Nausea/Vomiting - First Option Stop: 05/11/16 16:59 Acetaminophen (Tylenol Tablet) 650 mg PO Q6H PRN; Protocol PRN Reason: Mild Pain or Fever above 100.4 Stop: 05/11/16 16:59 Last Admin: 04/28/16 12:15 Dose: 650 mg Albuterol (Proventil, Ventolin) 3 ml NEB Q2H PRN PRN Reason: Wheezing Stop: 05/11/16 16:59 Last Admin: 04/29/16 20:29 Dose: 3 ml Albuterol/Ipratropium (Duoneb) 3 ml NEB RTQ6 [facility] Stop: 05/11/16 16:59 Last Admin: 05/04/16 08:06 Dose: 3 ml Alprazolam (Xanax) 0.5 mg PO Q6H PRN PRN Reason: Anxiety Stop: 05/12/16 14:09 Last Admin: 05/04/16 06:05 Dose: 0.5 mg Benzonatate (Tessalon) 200 mg PO TID PRN PRN Reason: Cough - First Option Stop: 05/11/16 16:59 Last Admin: 04/30/16 18:54 Dose: 200 mg Bupropion HCl (Wellbutrin-Sr) 150 mg PO BID [facility] Stop: 05/15/16 08:59 Last Admin: 05/04/16 08:21 Dose: 150 mg Chlorphenir/Hydrocodone Polistirex (Tussionex) 5 ml PO BID PRN PRN Reason: Cough - Alternative Stop: 05/11/16 16:59 Last Admin: 05/03/16 18:38 Dose: 5 ml Clonazepam (Klonopin) 0.5 mg PO QHS PRN PRN Reason: Sleep or Insomnia Stop: 05/12/16 14:09 Last Admin: 05/04/16 01:30 Dose: 0.5 mg - Assessment/Plan (1) Acute on chronic respiratory failure Resolved J96.20 - ACUTE AND CHR RESP FAILURE, UNSP W HYPOXIA OR HYPERCAPNIA hypoxia J96.21 - Acute and chronic respiratory failure with hypoxia Comment/Plan: Patient has been improving and is relatively stable occasional wheezing patient may be able to go home to continue the prednisone taper nebulizers antibiotic and supportive care and to follow up with me within is a week or so (2) Acute exacerbation of chronic obstructive airways disease Resolved J44.1 - CHRONIC OBSTRUCTIVE PULMONARY DISEASE W (ACUTE) EXACERBATION Comment/Plan: Patient to go home on steroid taper. Would continue supplemental oxygen, neb treatment along other supportive care (3) Hypoxia Acute R09.02 - HYPOXEMIA Comment/Plan: Continue oxygen prn (4) Nicotine addiction Acute F17.200 - NICOTINE DEPENDENCE, UNSPECIFIED, UNCOMPLICATED cigarettes unspecified nicotine-induced disorder F17.219 - Nicotine dependence, cigarettes, with unspecified nicotine-induced disorders Comment/Plan: Patient was told in no uncertain terms to quit smoking she understands and agrees patient is already on nicotine patch and wants to stop smoking once she goes home (5) Anxiety and depression Chronic F41.8 - OTHER SPECIFIED ANXIETY DISORDERS Comment/Plan: stable continue current therapy at this time
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
--- NOTE | 2016-05-08 12:12 | PCM.DCS92 ---
- Final/Secondary Discharge Diagnosis (1) Acute on chronic respiratory failure Resolved J96.20 - ACUTE AND CHR RESP FAILURE, UNSP W HYPOXIA OR HYPERCAPNIA Present on Admission: Yes hypoxia J96.21 - Acute and chronic respiratory failure with hypoxia Comment: Clinically improving.Increase activity (2) Acute exacerbation of chronic obstructive airways disease Resolved J44.1 - CHRONIC OBSTRUCTIVE PULMONARY DISEASE W (ACUTE) EXACERBATION Present on Admission: Yes Comment: Continue nebulized bronchodilators and po steroids, continue mucolytics and aggressive pulmonary toilet. (3) Bronchopneumonia Acute J18.0 - BRONCHOPNEUMONIA, UNSPECIFIED ORGANISM Comment: Continue po antibiotics. (4) GERD (gastroesophageal reflux disease) Chronic K21.9 - GASTRO-ESOPHAGEAL REFLUX DISEASE WITHOUT ESOPHAGITIS Present on Admission: Yes without esophagitis K21.9 - Gastro-esophageal reflux disease without esophagitis Comment: Continue PPI (5) Anxiety and depression Chronic F41.8 - OTHER SPECIFIED ANXIETY DISORDERS Present on Admission: Yes Comment: Stable on home meds (6) Hypertension Chronic I10 - ESSENTIAL (PRIMARY) HYPERTENSION Present on Admission: Yes essential hypertension Comment: Continue home meds. (7) Nicotine addiction Chronic F17.200 - NICOTINE DEPENDENCE, UNSPECIFIED, UNCOMPLICATED Present on Admission: Yes cigarettes unspecified nicotine-induced disorder F17.219 - Nicotine dependence, cigarettes, with unspecified nicotine-induced disorders Comment: Strongly encouraged patient to refrain from resuming smoking Discharge Disposition: Home Discharge Condition: Improved Cognitive Discharge Status: Unimpaired Fuctional Discharge Status: Independent New Prescriptions: Albuterol/Ipratropium Neb [Duoneb] 3 ml NEB Q6H #120 nebu ClonazePAM [Klonopin] 0.5 mg PO QHS PRN #30 tablet PRN Reason: Sleep Or Insomnia Levofloxacin [Levaquin] 750 mg PO DAILY #5 tablet Guaifenesin [Mucinex] 1,200 mg PO BID #20 tbmp.12hr Nicotine [Nicoderm] 21 mg TOP DAILY #30 pat Oxycodone Immediate Release [Oxycodone Immediate Release (OxyIR)] 5 mg PO Q6H PRN #30 tab PRN Reason: Pain Prednisone 10 mg PO DAILY #30 tab.ds.pk Albuterol Sulfate [Proair Hfa] 2 puff INH Q4-6H PRN #1 hfa.aer.ad PRN Reason: Shortness Of Breath Alprazolam [Xanax] 0.5 mg PO Q6H PRN #40 tablet PRN Reason: Anxiety O2 Device: Room Air Diet at Discharge: Heart Healthy, Low Salt, High Fiber Activity: As Tolerated Call Office For: Fever over 101 F Discontinue use of:: Alcohol, All Illegal Substances, All Types of Tobacco - DC Summary Notes Hospital Course Note:: Discharge summary on patient named ISAIAH RIVERA admitted to [facility] on 04/27/16 by Latosha Boogie MD. Date of discharge is []. Patient has initially presented to emergency room on April 27 for evaluation of progressive worsening difficulties breathing cough phlegm production fevers chills chest tightness and wheezes. Please refer the admission for further details. Upon arrival in ED patient was found to be in moderate respiratory distress hypoxic tachypneic and tachycardic. Her initial PaO2 on 3 L was 70. Chest x-ray showed bronchitic and COPD related changes but no rick pneumonia. Patient is admitted to general medical floor. Treatment of IV antibiotics IV steroids supplemental O2 and nebulized bronchodilators was instituted. Outpatient regimen for chronic medical conditions was continued. She was seen consultation by her personal counsellors Dr. Merrill and pulmonary regimen was optimized. Patient pulmonary status has very slowly but progressively improved and stabilized. She was gradually weaned off the oxygen and wean down on IV steroids. Her activity level was gradually advanced and by time of discharge patient is able to ambulate with mild exertional dyspnea. Smoking cessation counseling was provided the patient. Repeated chest x-ray shows COPD related changes but no pneumonia. Patient labs were monitored closely and remained within normal limits. It was felt that by May 08 patient has reached maximum benefit of inpatient therapy and after being cleared for discharge by counsellors in clinically stable improved condition she has been discharged home to the care of the family and her PCP. All prescriptions were renewed, prescription for a new nebulizer given the patient as well. orchard worker was involved in patient care and post discharge care was arranged for the patient. Total Time: 40 min . Code: 07565 (>30min.) - Physical Exam Vital Signs: Last Vital Signs Temp 97 F L 05/08/16 09:32 Pulse 95 05/08/16 09:32 Resp 20 05/08/16 09:32 BP 134/75 05/08/16 09:32 Pulse Ox 93 05/08/16 09:32 Oxygen Pulse Oxygen Saturation 93 O2 Device Room Air Oxygen Flow Rate 2 Fraction of Inspired Oxygen ( FIO2) Constitutional: Distress (Moderate due to CHRONIC OBSTRUCTIVE PULMONARY DISEASE and also due to anxiety), Well nourished. negative: Well appearing Oriented to: Time, Person, Place - HEENT Head: Normal (normocephalic, atraumatic.), Other (No cervical lymphadenopathy. No supraclavicular lymphadenopathy. Neck: No palpable mass, supple , trachea midline.) Eye: Normal (pupils equal, reactive to light, and round; EOMI, Sclera white) Oropharynx: Normal (Pharynx: Moist without exudate,Gums-no swelling, No oropharyngeal lesions or erythema, Mucous membranes are dry.) ENT EAC: Normal TMJ: Normal Nose: No Symptoms Reported (septum midline, Nares patent, without discharge or bleeding.) - Respiratory/Cardiovascular Respiratory: Diminished, Rhonchi. negative: Retractions Cardiovascular: Normal - GI Auscultation: Normal (normal active sounds) Palpation: Normal (Soft,non distended,nontender. No hepatosplenomegaly.) Tenderness: Non tender (No rebound or guarding) Salgado's Sign: Negative - Exam Deferred: Yes - Musculoskeletal Back: Normal (Non-Tender) Extremities: Normal (Normal tone, DP pulses 2+ bilaterally, No cyanosis or edema bilaterally, FROM bilaterally.) - Integumentary Skin: Normal, Warm, Dry Lymphatics: Normal. negative: Adenopathy - Neurologic Memory Impaired: Normal Motor Function: Normal Cranial Nerve: Normal Cerebellar: Normal (Babinski: toes downgoing bilaterally. Intact Finger to nose. Sensory grossly intact to light touch. Intact rapid alternating movements bilaterally. No pronator drift.) Mood Description: Anxious Thought: Coherent Perception: Normal (Normal and appropriate affect.) - Other Exam Other Exam Findings: Allergies No Known Allergies Allergy (Verified 01/06/16 19:03) Last Vital Signs Temp 97 F L 05/08/16 09:32 Pulse 95 05/08/16 09:32 Resp 20 05/08/16 09:32 BP 134/75 05/08/16 09:32 Pulse Ox 93 05/08/16 09:32 05/05/16 07:22 05/08/16 07:35 Abnormal Lab Results 05/07/16 05/07/1617 16:40 20:44 06:07 Chloride Carbon Dioxide BUN POC Capillary Glucose 188 H 184 H 130 H 05/08/16 07:35 Chloride 95 L Carbon Dioxide 37 H BUN 26 H POC Capillary Glucose Microbiology 04/27/16 Unknown Blood Blood Culture - Final No growth aerobically or anaerobically at 120 hours. NORMAL VALUE = No growth 04/27/16 22:17 Blood Blood Culture - Final No growth aerobically or anaerobically at 120 hours. NORMAL VALUE = No growth Discharge Home Medication List Sertraline HCl [Zoloft] 25 mg PO DAILY 04/26/13 [History Confirmed 04/28/16] Hydrochlorothiazide 25 mg PO QAM #30 tab 05/06/13 [Rx Confirmed 04/28/16] Mometasone/Formoterol [Dulera 100 Mcg/5 Mcg Inhaler] 1 puff IH BID 08/12/15 [ History Confirmed 04/28/16] Omeprazole [Prilosec] 40 mg PO DAILY 08/12/15 [History Confirmed 04/28/16] Nebulizer [Erapid Nebulizer] 1 each MC .UNKNOWN 01/06/16 [History Confirmed 09/07] Albuterol/Ipratropium Neb [Duoneb] 3 ml NEB Q6H #1 box 01/13/16 [Rx Confirmed ] Albuterol Sulfate [Proair Hfa] 2 puff INH Q4-6H PRN #1 hfa.aer.ad 05/08/16 [Rx] Albuterol/Ipratropium Neb [Duoneb] 3 ml NEB Q6H #120 nebu 05/08/16 [Rx] Alprazolam [Xanax] 0.5 mg PO Q6H PRN #40 tablet 05/08/16 [Rx] ClonazePAM [Klonopin] 0.5 mg PO QHS PRN #30 tablet 05/08/16 [Rx] Guaifenesin [Mucinex] 1,200 mg PO BID #20 tbmp.12hr 05/08/16 [Rx] Levofloxacin [Levaquin] 750 mg PO DAILY #5 tablet 05/08/16 [Rx] Nicotine [Nicoderm] 21 mg TOP DAILY #30 pat 05/08/16 [Rx] Oxycodone Immediate Release [Oxycodone Immediate Release (OxyIR)] 5 mg PO Q6H PRN #30 tab 05/08/16 [Rx] Prednisone 10 mg PO DAILY #30 tab.ds.pk 05/08/16 [Rx] New Discharge Medications (Rx) Albuterol Sulfate [Proair Hfa] 2 puff INH Q4-6H PRN #1 hfa.aer.ad 05/08/16 [Rx] Albuterol/Ipratropium Neb [Duoneb] 3 ml NEB Q6H #120 nebu 05/08/16 [Rx] Alprazolam [Xanax] 0.5 mg PO Q6H PRN #40 tablet 05/08/16 [Rx] ClonazePAM [Klonopin] 0.5 mg PO QHS PRN #30 tablet 05/08/16 [Rx] Guaifenesin [Mucinex] 1,200 mg PO BID #20 tbmp.12hr 05/08/16 [Rx] Levofloxacin [Levaquin] 750 mg PO DAILY #5 tablet 05/08/16 [Rx] Nicotine [Nicoderm] 21 mg TOP DAILY #30 pat 05/08/16 [Rx] Oxycodone Immediate Release [Oxycodone Immediate Release (OxyIR)] 5 mg PO Q6H PRN #30 tab 05/08/16 [Rx] Prednisone 10 mg PO DAILY #30 tab.ds.pk 05/08/16 [Rx] Home Medications Sertraline HCl [Zoloft] 25 mg PO DAILY 04/26/13 Hydrochlorothiazide 25 mg PO QAM #30 tab 05/06/13 Mometasone/Formoterol [Dulera 100 Mcg/5 Mcg Inhaler] 1 puff IH BID 08/12/15 Omeprazole [Prilosec] 40 mg PO DAILY 08/12/15 Nebulizer [Erapid Nebulizer] 1 each MC .UNKNOWN 01/06/16 Albuterol/Ipratropium Neb [Duoneb] 3 ml NEB Q6H #1 box 01/13/16 Albuterol Sulfate [Proair Hfa] 2 puff INH Q4-6H PRN #1 hfa.aer.ad 05/08/16 Albuterol/Ipratropium Neb [Duoneb] 3 ml NEB Q6H #120 nebu 05/08/16 Alprazolam [Xanax] 0.5 mg PO Q6H PRN #40 tablet 05/08/16 ClonazePAM [Klonopin] 0.5 mg PO QHS PRN #30 tablet 05/08/16 Guaifenesin [Mucinex] 1,200 mg PO BID #20 tbmp.12hr 05/08/16 Levofloxacin [Levaquin] 750 mg PO DAILY #5 tablet 05/08/16 Nicotine [Nicoderm] 21 mg TOP DAILY #30 pat 05/08/16 Oxycodone Immediate Release [Oxycodone Immediate Release (OxyIR)] 5 mg PO Q6H PRN #30 tab 05/08/16 Prednisone 10 mg PO DAILY #30 tab.ds.pk 05/08/16
[2016-05-08] MEDS ORDERED: METHYLPREDNISOLONE 40 MG/1 ML VIAL IV SCH (18:00)
== END 2016-05-08 13:28 | disposition home or self-care (01) | DRG 190 ==
LOC: ED 22:04 → PCU 23:37 → MPS3 04-28 18:46
PROVIDERS: ADMIT Hospitalist; ATTEND Internal Medicine
PROC: 039B3ZZ Drainage of Right Radial Artery, Percutaneous Approach (ICD-10-PCS; principal; 2016-04-27)
DX: J44.1 Chronic obstructive pulmonary disease with (acute) exacerbation (principal); J96.21 Acute and chronic respiratory failure with hypoxia; J18.0 Bronchopneumonia, unspecified organism; J44.0 Chronic obstructive pulmonary disease with (acute) lower respiratory infection; F41.8 Other specified anxiety disorders; I10 Essential (primary) hypertension; F17.219 Nicotine dependence, cigarettes, with unspecified nicotine-induced disorders; Z87.01 Personal history of pneumonia (recurrent); Z79.899 Other long term (current) drug therapy; Z71.6 Tobacco abuse counseling
CPT/HCPCS: 36415; 36600; 71010; 71020; 80048; 80053; 81001; 82803; 82962; 83605; 83735; 83880; 84443; 84484; 85007; 85025; 85027; 85610; 85730; 87040; 93005; 94640; 96372; 98960; 99285; G0237; J0456; J0696; J1650; J1940; J1956; J2270; J2920; J2930; J3490; J7040; J7060; J7070; J7620

== ENCOUNTER 2016-05-08 23:45 | Inpatient (IN) | payer MEDICAID ==
[2016-05-08] MEDS ORDERED: TERBUTALINE 1 MG/ML AMPULE SQ ONE (23:48)
[2016-05-08] MEDS ORDERED: LORAZEPAM 2 MG/ML VIAL IV ONE ×2 (23:49→23:56)
[2016-05-08] MEDS ORDERED: ALBUTEROL 0.083% 3 ML NEB NEB ONE (23:52)
--- NOTE | 2016-05-08 23:52 | EDPRACDOC ---
- General Information Chief Complaint: Dyspnea/Resp distress Stated Complaint: RESP FAILURE Time Seen by Provider: 05/08/16 23:48 Home Medications: Home Medications Sertraline HCl [Zoloft] 25 mg PO DAILY 04/26/13 Hydrochlorothiazide 25 mg PO QAM #30 tab 05/06/13 Mometasone/Formoterol [Dulera 100 Mcg/5 Mcg Inhaler] 1 puff IH BID 08/12/15 Omeprazole [Prilosec] 40 mg PO DAILY 08/12/15 Nebulizer [Erapid Nebulizer] 1 each MC .UNKNOWN 01/06/16 Albuterol Sulfate [Proair Hfa] 2 puff INH Q4-6H PRN #1 hfa.aer.ad 05/08/16 Albuterol/Ipratropium Neb [Duoneb] 3 ml NEB Q6H #120 nebu 05/08/16 Alprazolam [Xanax] 0.5 mg PO Q6H PRN #40 tablet 05/08/16 ClonazePAM [Klonopin] 0.5 mg PO QHS PRN #30 tablet 05/08/16 Guaifenesin [Mucinex] 1,200 mg PO BID #20 tbmp.12hr 05/08/16 Levofloxacin [Levaquin] 750 mg PO DAILY #5 tablet 05/08/16 Nicotine [Nicoderm] 21 mg TOP DAILY #30 pat 05/08/16 Oxycodone Immediate Release [Oxycodone Immediate Release (OxyIR)] 5 mg PO Q6H PRN #30 tab 05/08/16 Prednisone 10 mg PO DAILY #30 tab.ds.pk 05/08/16 Allergies/Adverse Reactions: Allergies Allergy/AdvReac Type Severity Reaction Status Date / Time No Known Allergies Allergy Verified 01/06/16 19:03 - History of Present Illness HPI: PATIENT RELEASED FROM HOSPITAL TODAY. INCREASING SOB AFTER SMOKING. REQUIRED MULTIPLE NEBS TODAY WITHOUT RELIEF. NO FEVER. REQUIRED BIPAP BY EMS WITHOUT SIGNIFICANT RELIEF. Shortness of Breath: Moderate Relevant History: Reports: COPD Cough: Reports: Non-productive Ear Symptoms: Reports: None SOB Worsens with: Reports: Nothing SOB Improves with: Reports: Nothing Associated Signs and symptoms: Reports: Cough ED Past Medical History - History Reviewed Yes Nurses notes reviewed and agree except as marked Travel Outside of [place] in the Last 3 Months?: No - Patient Medical History Cardiac History: Reports: Hypertension Respiratory History: Reports: COPD (uses home nebs & inhalers - no oxygen), Pneumonia Psychological History: Reports: Depression (takes zoloft), Anxiety. Denies: Substance Use Disorder Systemic History: Denies: Cancer Surgical History: Reports: Tonsillectomy/Adnoidectomy - Family Medical History Reports: Hypertension (Mom), Diabetes (Mom), Cancer (mom), Stroke (mom), Cardiac Disorders (oldest child has "hardening of her arteries" - isn't sure what it's called) - Social Medical History Smoking Status: Heavy tobacco smoker (5 or more cigarettes/day or daily pipe/ cigar) Social History: Denies: Substance Use Disorder ETOH: None Substance Abuse: None Lives With: Family Lives In: Home EDM Review of Systems - Review of Systems ROS Negative Except as Marked: Yes All systems reviewed and were negative except as marked Constitutional: No Symptoms Reported. negative: Fever, Chills, Weakness, Fatigue, Loss of Appetite Eyes: No Symptoms Reported. negative: Redness, Blurred Vision, Double Vision, Discharge, Pain, Light Sensitive, Photophobia Ears: No Symptoms Reported. negative: Pain, Hearing Loss, Drainage, Ear Pulling Throat: No Symptoms Reported. negative: Pain, Swelling Nose: No Symptoms Reported. negative: Congestion, Bleeding, Discharge, Injection, Swelling, Deformity, Ecchymosis, Tender, Abrasion, Laceration Mouth: No Symptoms Reported. negative: Pain, Drooling Respiratory: Cough, Shortness of Breath, Wheezing. negative: Barky Cough, Brassy Cough, Hemoptysis Cardiovascular: No Symptoms Reported. negative: Chest Pain, Palpitations, Syncope, Edema, Orthopnea, PND, Skin Mottling, Cyanosis Gastrointestinal: No Symptoms Reported. negative: Pain, Constipation, Nausea, Vomiting, Diarrhea, Melena, Formula Intolerance Genitourinary: No Symptoms Reported. negative: Dysuria, Hematuria, Frequency, Discharge, Bleeding, Testicular Pain, Neurological: No Symptoms Reported. negative: Headache, Dizziness, Seizure, Numbness, Weakness, Speech Difficulty, Gait Difficulty Musculoskeletal: No Symptoms Reported. negative: Neck, Chestwall, Ribs, Back, Shoulder, Arm, Elbow, Forearm, Wrist, Hand, Pelvis, Hip, Femur, Knee, Leg, Ankle , Foot Integumentary: No Symptoms Reported. negative: Itching, Rash, Bruising, Wound Allergic/Immunologic: No Symptoms Reported. negative: Hives, Itching Hematologic: No Symptoms Reported. negative: Lymphadenopathy, Easy Bruising, Easy Bleeding Endocrine: No Symptoms Reported. negative: Weight Gain, Weight Loss Psychiatric: No Symptoms Reported. negative: Anxiety, Depression, Hallucinations, Insomnia, Suicidal - Physical Exam Constitutional: Alert (Awake) Oriented to: Time, Person, Place Last recorded Vital Signs: Oxygen Pulse Oxygen Saturation O2 Device Oxygen Flow Rate Fraction of Inspired Oxygen ( FIO2) - HEENT Head: Normal ( normocephalic) Eye Exam: Normal (PERRL, EOMI, Sclera white) Oropharynx: Normal (Pharynx:Moist without exudate,Gums-no swelling) Tympanic Membrane: Normal ENT EAC: Normal TMJ: Normal Nose: No Symptoms Reported (septum midline) Neck: Normal (FROM, trachea at midline) - Respiratory/Cardiovascular Respiratory: Diminished, Retractions, Wheezes Cardiovascular: Tachycardia - GI Auscultation: Normal (NABS) Palpation: Normal (Soft,No rebound or guarding, non distended) Tenderness: Non tender Salgado's Sign: Negative - Musculoskeletal Back: Normal (Non-Tender) Extremities: Normal (Normal tone, Pulses 2+ No cyanosis or edema, FROM) - Integumentary Skin: Normal, Warm, Dry Lymphatics: Normal (no adenopathy) - Neurologic Memory Impaired: Normal Motor Function: Normal (Normal tone, Pulses 2+ No cyanosis or edema, FROM) Cranial Nerve: Normal (CN II-X11 intact sensation, strength 5/5) Cerebellar: Normal Mood Description: Normal Perception: Normal ED SOB MDM - Re-evaluation Re-evaluation 1 Re-evaluation Time: 01:24 (PATIENT ADMITS TO USING CRACK COCAINE [employer]ER [employer] ) - Results Result Diagrams: 05/08/16 23:55 05/08/16 23:55 - EKG EKG #1 EKG Time: 23:58 -: Yes EKG interpreted by me Rate: bpm: 95 [place]: Normal Rhythm: NSR Block: None Hypertrophy: None ST: Normal EKG #2 EKG Time: 01:27 -: Yes EKG interpreted by me Rate: bpm: 104 [place]: Normal Rhythm: ST Block: None Hypertrophy: None ST: Normal - Departure Yes I personally saw and evaluated the patient. Disposition: Admit IP To This Hospital Condition: Fair Final Diagnosis: COPD exacerbation, Non-STEMI (non-ST elevated myocardial infarction), Cocaine abuse Education/Counseling Given To: Patient Education/Counseling Given Regarding: Diagnosis, Treatment, Prognosis Referrals: Dania Rosario CON[employer]ANER [Primary Care Provider] - One Week Decision to Admit Time: 01: Decision to admit date: 05/09/16 Decision to admit: from ED - Physician Consulted Hospitalist Time Called: : Provider Called: Benito Montalvo Time Biller Returned Call: 01:26
[2016-05-09 00:27] LABS: ALLEN'S TEST PASS
[2016-05-09 00:28] LABS: ABG Draw Site Right Radial; TCO2 40.3 MMOL/L (23-27)
[2016-05-09 00:36] LABS: MPV 8.5 fL (7.4-10.4)
[2016-05-09 00:54] LABS: BLOOD UREA NITROGEN 28 MG/DL (7-17); CALC CORRECTED 8.9 MG/DL (8.4-10.2); CALCIUM 8.3 MG/DL (8.4-10.2); CALCULATED OSMOLALITY 273 MOs/Kg (270-290); CHLORIDE 95 mEq/L (98-107); GLUCOSE 89 MG/DL (70-99); SODIUM LEVEL 139 mEq/L (137-146); TOTAL PROTEIN 6.4 G/DL (6.3-8.2)
[2016-05-09 01:00] LABS: PARTIAL THROMB. TIME 18.5 SEC (22-35)
[2016-05-09] MEDS ORDERED: ASPIRIN (CHEWABLE) 81 MG TAB PO ONE (01:14)
[2016-05-09] MEDS ORDERED: NITROGLYCERINE 2 % OINTMENT PACK TOP ONE (01:14)
--- NOTE | 2016-05-09 01:48 | DIRPT ---
CLINICAL DATA: Acute onset of worsening shortness of breath. Cough and congestion. Initial encounter. EXAM: PORTABLE CHEST 1 VIEW COMPARISON: Chest radiograph performed 05/07/2016 FINDINGS: The lungs are well-aerated. Pulmonary vascularity is at the upper limits of normal. There is no evidence of focal opacification, pleural effusion or pneumothorax. The cardiomediastinal silhouette is within normal limits. No acute osseous abnormalities are seen. IMPRESSION: No acute cardiopulmonary process seen. Electronically Signed By: Roberto Curtis M.D. On: 05/09/2016 01:45
[2016-05-09 01:53] LABS: ALL NEG? NO
[2016-05-09] MEDS ORDERED: PIPERACILLIN AND TAZOBACTAM 4.5 GM in D5W 100 ML IV ONE (01:56)
[2016-05-09 01:59] LABS: MDMA* NEG (NEGATIVE); METHAMPHETAMINES NEG (NEGATIVE); OXYCODONE *POSITIVE* (NEGATIVE)
[2016-05-09 02:00] LABS: SEG NEUTROPHIL 77 % (45-76)
[2016-05-09] MEDS ORDERED: NITROGLYCERINE 0.4 MG TAB SL PRN ×2 (02:01→02:56)
[2016-05-09] MEDS ORDERED: MORPHINE 2 MG/ML INJECTION IV PRN (02:22)
--- NOTE | 2016-05-09 02:22 | HISTPHYS ---
- Chief Complaint shortness of breath - History of Present Illness PRIMARY CARE PROVIDER: Dania Rosario HPI: The patient is a 50 yo woman who was admitted to the hospital and was just discharged yesterday, 05/08/16, then returned that same day just before midnight with worsening shortness of breath and chest pain. The patient is very short of breath, so her daughter provides some of the history. Her daughter states the patient went home after being discharged from the hospital and was doing well, was walking around the house without difficulty and was not short of breath. Then her mother started smoking cigarettes, and she became short of breath. Her mother also smoked crack cocaine and then developed both shortness of breath and chest pain. She told her daughter to call EMS because she could not breathe and thought she was dying. The patient reports she is sad that she used the cocaine and smoked, and that she is addicted; she says she wants to quit and wants to go directly to rehab when she is discharged this time. Regarding the chest pain and shortness of breath: Onset: today (overnight). Duration: constant. Location: substernal. Radiation: none. Character: pressure and tightness. Alleviated by: Nothing. Exacerbated by: Nothing. Associated Symptoms: Shortness of breath. Wheezing. Coughing. Diaphoresis. Chest pain and palpitations. Treatments: none at home except usual medications. - Medical History Cardiac History: Reports: Hypertension Respiratory History: Reports: COPD (uses home nebs & inhalers - no oxygen), Pneumonia Systemic History: Denies: Cancer Psychological History: Reports: Depression (takes zoloft), Anxiety, Substance Use Disorder (Cocaine use) - Surgical History Reports: Tonsillectomy/Adnoidectomy - Medictions/Allergies Allergies No Known Allergies Allergy (Verified 01/06/16 19:03) Current Medication List: Reviewed Home Medications Sertraline HCl [Zoloft] 25 mg PO DAILY 04/26/13 Hydrochlorothiazide 25 mg PO QAM #30 tab 05/06/13 Mometasone/Formoterol [Dulera 100 Mcg/5 Mcg Inhaler] 1 puff IH BID 08/12/15 Omeprazole [Prilosec] 40 mg PO DAILY 08/12/15 Nebulizer [Erapid Nebulizer] 1 each MC .UNKNOWN 01/06/16 Albuterol Sulfate [Proair Hfa] 2 puff INH Q4-6H PRN #1 hfa.aer.ad 05/08/16 Albuterol/Ipratropium Neb [Duoneb] 3 ml NEB Q6H #120 nebu 05/08/16 Alprazolam [Xanax] 0.5 mg PO Q6H PRN #40 tablet 05/08/16 ClonazePAM [Klonopin] 0.5 mg PO QHS PRN #30 tablet 05/08/16 Guaifenesin [Mucinex] 1,200 mg PO BID #20 tbmp.12hr 05/08/16 Levofloxacin [Levaquin] 750 mg PO DAILY #5 tablet 05/08/16 Nicotine [Nicoderm] 21 mg TOP DAILY #30 pat 05/08/16 Oxycodone Immediate Release [Oxycodone Immediate Release (OxyIR)] 5 mg PO Q6H PRN #30 tab 05/08/16 Prednisone 10 mg PO DAILY #30 tab.ds.pk 05/08/16 - Family History Reports: Hypertension (Mom), Diabetes (Mom), Cancer (mom), Stroke (mom), Cardiac Disorders (oldest child has "hardening of her arteries" - isn't sure what it's called) - Social History Smoking Status: Heavy tobacco smoker (5 or more cigarettes/day or daily pipe/ cigar) Social History: Reports: Substance Use Disorder (Cocaine). Denies: Alcohol Use - Review of Systems GENERAL: No Fever, chills. Has diaphoresis. Positive for fatigue/malaise. HEENT: No ear pain or discharge. No nasal discharge or bleeding. No throat pain or swelling. No eye pain or eye redness. RESPIRATORY: Cough, wheezing, shortness of breath. CARDIOVASCULAR: Chest pain and palpitations. GI: No abdominal pain, nausea, vomiting, diarrhea, constipation, or bloody stool. NEUROLOGICAL: No headache or focal weakness. INTEGUMENT: no rashes, itching, or lesions. LYMPHATIC SYSTEM: no lymph node swelling or pain. MUSCULOSKELETAL: Chronic pain but no new pain or joint swelling. GENITOURINARY: No dysuria or hematuria. ENDOCRINE: No polyuria or polydipsia. HEME: No chronic anemia, bleeding, or easy bruising. - Physical Exam Vital Signs: Initial Vitals Pulse Rate 108 05/08/16 23:45 Respiratory Rate 36 H 05/08/16 23:45 Temp 97.6 P 101 RR 36 BP 177/119 O2 91% - Other Exam Other Exam Findings: GENERAL: Ill-appearing, well nourished, in acute distress. HEENT: Normocephalic, atraumatic; pupils dilated, large, equal and round. Nares patent, without discharge or bleeding. No oropharyngeal lesions or erythema. Mucous membranes are dry. NECK: is supple, no masses, trachea midline. RESPIRATORY: Clear to auscultation bilaterally. Chest wall movements are symmetric. Tachypnea and use of accessory muscles to breathe. Bilateral wheezing and coarse breath sounds. No rales. CARDIOVASCULAR: Normal S1, S2. No rubs, or gallops. PMI non-displaced. Carotids : no carotid bruits. Tachycardia. DP pulses 2+ bilaterally. GI: soft, nontender, non-distended, normal active bowel sounds. No hepatosplenomegaly. INTEGUMENT: Clean, diaphoretic, and intact. No rashes. MUSCULOSKELETAL: Moving all extremities. No cyanosis. No clubbing. Edema: none bilaterally. NEUROLOGICAL: Cranial nerves 2-12 grossly intact. Motor 4/5 throughout. Reflexes : 2+ bilaterally. Babinski: toes downgoing bilaterally. Intact Finger to nose. Sensory grossly intact to light touch. Intact rapid alternating movements bilaterally. No pronator drift. PSYCHIATRIC: Fully oriented. Anxious affect. LYMPHATIC: No cervical lymphadenopathy. No supraclavicular lymphadenopathy. - Lab Results Laboratory Tests 05/08/16 05/08/16 05/08/16 00:23 23:55 23:55 WBC 30.8 H* RBC 5.13 Hgb 15.8 D Hct 47.9 H MCV 93 MCH 30.8 MCHC 33.0 RDW 13.9 Plt Count 327 MPV 8.5 Neut % (Auto) Cancelled Lymph % (Auto) Cancelled [place] % (Auto) Cancelled Eos % (Auto) Cancelled Baso % (Auto) Cancelled Absolute Neuts (auto) Cancelled Absolute Lymphs (auto) Cancelled Seg Neuts % (Manual) 77 H Band Neutrophils % 0 Lymphocytes % (Manual) 18 Monocytes % (Manual) 5 Absolute Neutrophils 23.72 H Absolute Lymphocytes 5.54 H Platelet Estimate Norm RBC Morphology Norm PT INR APTT Puncture Site Right radial pH 7.400 pCO2 62.0 H pO2 61.0 L HCO3 38.4 H Total CO2 40.3 H Base Excess 11.0 H FiO2 % 21% Specimen Drawn By Whitr Sodium 139 Potassium 3.9 Chloride 95 L Carbon Dioxide 40 H Anion Gap 8 BUN 28 H Creatinine 0.60 Estimated GFR (MDRD) > 60 Glucose 89 Calculated Osmolality 273 Lactic Acid Calcium 8.3 L Corrected Calcium 8.9 Total Bilirubin 0.8 AST 47 H ALT 70 H Alkaline Phosphatase 63 Creatine Kinase CK-MB (CK-2) CK-MB (CK-2) Rel Index Troponin I 0.54 H* [id number] Pept Total Protein 6.4 Albumin 3.4 L Triglycerides Cholesterol LDL Cholesterol, Calc VLDL Cholesterol, Calc HDL Cholesterol Cholesterol/HDL Ratio Urine Color Urine Clarity Urine pH Ur Specific Simpson Urine Protein Urine Glucose (UA) Urine Ketones Urine Occult Blood Urine Nitrite Urine Bilirubin Urine Urobilinogen Ur Leukocyte Esterase Urine RBC Urine WBC Ur Epithelial Cells Amorphous Sediment Urine Bacteria Urine Opiates Screen Ur Oxycodone Screen Urine Methadone Screen Ur Barbiturates Screen Ur Tricyclics Screen Ur Phencyclidine Scrn Ur Amphetamines Screen U Methamphetamines Scrn Urine MDMA Screen U Benzodiazepines Scrn Urine Cocaine Screen Ur THC Screen 05/08/16 05/08/16 05/09/16 23:55 23:55 00:38 WBC RBC Hgb Hct MCV MCH MCHC RDW Plt Count MPV Neut % (Auto) Lymph % (Auto) [place] % (Auto) Eos % (Auto) Baso % (Auto) Absolute Neuts (auto) Absolute Lymphs (auto) Seg Neuts % (Manual) Band Neutrophils % Lymphocytes % (Manual) Monocytes % (Manual) Absolute Neutrophils Absolute Lymphocytes Platelet Estimate RBC Morphology PT 10.5 INR 1.0 APTT 18.5 L Puncture Site pH pCO2 pO2 HCO3 Total CO2 Base Excess FiO2 % Specimen Drawn By Sodium Potassium Chloride Carbon Dioxide Anion Gap BUN Creatinine Estimated GFR (MDRD) Glucose Calculated Osmolality Lactic Acid Calcium Corrected Calcium Total Bilirubin AST ALT Alkaline Phosphatase Creatine Kinase 136 H CK-MB (CK-2) 6.7 H CK-MB (CK-2) Rel Index Troponin I [id number] Pept Total Protein Albumin Triglycerides Cholesterol LDL Cholesterol, Calc VLDL Cholesterol, Calc HDL Cholesterol Cholesterol/HDL Ratio Urine Color Urine Clarity Urine pH Ur Specific Simpson Urine Protein Urine Glucose (UA) Urine Ketones Urine Occult Blood Urine Nitrite Urine Bilirubin Urine Urobilinogen Ur Leukocyte Esterase Urine RBC Urine WBC Ur Epithelial Cells Amorphous Sediment Urine Bacteria Urine Opiates Screen *positive* H Ur Oxycodone Screen *positive* H Urine Methadone Screen Neg Ur Barbiturates Screen Neg Ur Tricyclics Screen Neg Ur Phencyclidine Scrn Neg Ur Amphetamines Screen Neg U Methamphetamines Scrn Neg Urine MDMA Screen Neg U Benzodiazepines Scrn Neg Urine Cocaine Screen *positive* H Ur THC Screen Neg - Diagnostic Findings EK bpm. Normal sinus rhythm. Cannot rule out anteroseptal infarct, age undetermined. Reviewed EKG personally. Chest x-ray, viewed personally: EXAM: PORTABLE CHEST 1 VIEW COMPARISON: Chest radiograph performed 05/07/2016 FINDINGS: The lungs are well-aerated. Pulmonary vascularity is at the upper limits of normal. There is no evidence of focal opacification, pleural effusion or pneumothorax. The cardiomediastinal silhouette is within normal limits. No acute osseous abnormalities are seen. IMPRESSION: No acute cardiopulmonary process seen. - Assessment (1) Acute coronary syndrome I24.9 - ACUTE ISCHEMIC HEART DISEASE, UNSPECIFIED Acute Present on Admission: Yes Likely brought on by acute cocaine use after leaving hospital. Plan: Rule out myocardial infarction. Plan: Obtain cardiac enzymes x 3. Place patient on telemetry. Give patient oxygen, aspirin. Give nitroglycerin, and morphine as needed for chest pain. Give statin. Stress test has been ordered for the morning. Patient has been advised, if the stress test is negative, to follow up with the primary care provider for evaluation of other potential causes of the chest pain. No beta-shelley due to acute cocaine use. Give RICARDO-inhibitor. Lovenox 1 milligram/kilogram q.12 hours. (2) Acute and chronic respiratory failure with hypercapnia J96.22 - ACUTE AND CHRONIC RESPIRATORY FAILURE WITH HYPERCAPNIA Acute Present on Admission: Yes Plan: Venti Mask (3) Leukocytosis D72.829 - ELEVATED WHITE BLOOD CELL COUNT, UNSPECIFIED Acute Present on Admission: Yes Severe elevation to greater than 30; WBCs 13 the previous day. May be due to severe acute reaction or to infection. Plan: Cultures. Empiric antibiotic IV Zosyn. (4) Cocaine abuse F14.10 - COCAINE ABUSE, UNCOMPLICATED Acute Present on Admission: Yes Counseled to quit. Discussed that her cocaine use likely caused her acute cardiac ischemia. (5) COPD exacerbation J44.1 - CHRONIC OBSTRUCTIVE PULMONARY DISEASE W (ACUTE) EXACERBATION Acute Present on Admission: Yes Had improved until she smoked cigarettes and cocaine at home. (6) Cocaine abuse with intoxication F14.129 - COCAINE ABUSE WITH INTOXICATION, UNSPECIFIED Acute Present on Admission: Yes Counseled to quit. Discussed that her cocaine use likely caused her acute cardiac ischemia. - Plan (1) Acute coronary syndrome I24.9 - ACUTE ISCHEMIC HEART DISEASE, UNSPECIFIED Acute Present on Admission: Yes Likely brought on by acute cocaine use after leaving hospital. Plan: Rule out myocardial infarction. Plan: Obtain cardiac enzymes x 3. Place patient on telemetry. Give patient oxygen, aspirin. Give nitroglycerin, and morphine as needed for chest pain. Give statin. Stress test has been ordered for the morning. Patient has been advised, if the stress test is negative, to follow up with the primary care provider for evaluation of other potential causes of the chest pain. No beta-shelley due to acute cocaine use. Give RICARDO-inhibitor. Lovenox 1 milligram/kilogram q.12 hours. (2) Acute and chronic respiratory failure with hypercapnia J96.22 - ACUTE AND CHRONIC RESPIRATORY FAILURE WITH HYPERCAPNIA Acute Present on Admission: Yes Plan: Venti Mask (3) Leukocytosis D72.829 - ELEVATED WHITE BLOOD CELL COUNT, UNSPECIFIED Acute Present on Admission: Yes Severe elevation to greater than 30; WBCs 13 the previous day. May be due to severe acute reaction or to infection. Plan: Cultures. Empiric antibiotic IV Zosyn. (4) Cocaine abuse F14.10 - COCAINE ABUSE, UNCOMPLICATED Acute Present on Admission: Yes Counseled to quit. Discussed that her cocaine use likely caused her acute cardiac ischemia. (5) COPD exacerbation J44.1 - CHRONIC OBSTRUCTIVE PULMONARY DISEASE W (ACUTE) EXACERBATION Acute Present on Admission: Yes Had improved until she smoked cigarettes and cocaine at home. Restart nebs and treatment. (6) Cocaine abuse with intoxication F14.129 - COCAINE ABUSE WITH INTOXICATION, UNSPECIFIED Acute Counseled to quit. Discussed that her cocaine use likely caused her acute cardiac ischemia. In summary, this patient is acutely and critically ill. The patient requires treatment of vital organ failure and measures to prevent further life- threatening deterioration of condition. I have spent 60 min in the critical care of this patient.
[2016-05-09] MEDS ORDERED: Enoxaparin 1 mg per kg per dose SQ SCH (03:00)
[2016-05-09] MEDS ORDERED: Pharmacy Order Set Alert SCH (03:00)
[2016-05-09 03:04] LABS: CPK TOTAL WITH POSSIBLE MB 136 IU/L (30-134)
[2016-05-09] MEDS ORDERED: Docusate Sodium 100 MG CAP PO PRN (03:05)
[2016-05-09] MEDS ORDERED: PROMETHAZINE 25 MG/ML VIAL IV PRN (03:05)
[2016-05-09] MEDS ORDERED: ALBUTEROL 0.083% 3 ML NEB NEB PRN (03:05)
[2016-05-09] MEDS ORDERED: SENNA CONCENTRATE TAB PO PRN (03:05)
[2016-05-09] MEDS ORDERED: GUAIFEN 100 MG-DEXTROMETH 10 MG PER 5 ML PO PRN (03:05)
[2016-05-09] MEDS ORDERED: BENZONATATE 100 MG PERLES PO PRN (03:05)
[2016-05-09] MEDS ORDERED: ACETAMINOPHEN 325 MG SUPP PR PRN (03:05)
[2016-05-09] MEDS ORDERED: ONDANSETRON HCL 4 MG/2 ML VIAL IV PRN (03:05)
[2016-05-09] MEDS ORDERED: SIMETHICONE 80 MG TAB PO PRN (03:05)
[2016-05-09] MEDS ORDERED: BISACODYL 5 MG TAB PO PRN (03:05)
[2016-05-09] MEDS ORDERED: ACETAMINOPHEN 325 MG/TAB TABLET PO PRN (03:05)
[2016-05-09] MEDS ORDERED: TEMAZEPAM 15 MG CAP PO PRN (03:05)
[2016-05-09 03:22] LABS: CPKMB 7.1 ng/mL (0-4.5)
[2016-05-09 03:22] LABS: CPKMB 6.7 ng/mL (0-4.5)
[2016-05-09] MEDS ORDERED: ENOXAPARIN 80 MG/0.8 ML PFS SQ SCH (04:00)
[2016-05-09 04:37] VITALS: BMI 21.7
[2016-05-09] MEDS: ENOXAPARIN 60 MG/0.6 ML PFS SQ SCH ×2 (06:07→17:11)
[2016-05-09] MEDS: METHYLPREDNISOLONE 40 MG/1 ML VIAL IV SCH ×3 (06:09→21:09)
[2016-05-09] MEDS: NITROGLYCERINE 2 % OINTMENT PACK TOP SCH ×3 (07:14→17:10)
[2016-05-09] MEDS ORDERED: Vaccine Screening Complete SCH (08:00)
[2016-05-09] MEDS ORDERED: Albuterol/Ipratropium Neb 3 ML NEB NEB SCH (08:00)
[2016-05-09] MEDS: ATORVASTATIN 40 MG TAB PO SCH (08:02)
[2016-05-09] MEDS: ASPIRIN 325 MG TAB PO SCH (08:03)
[2016-05-09] MEDS: LISINOPRIL 5 MG TAB PO SCH (08:03)
[2016-05-09 08:19] LABS: LEUKOCYTES/URINE NEG (NEGATIVE); NITRITE/URINE NEG (NEGATIVE); URINE OCCULT BLOOD 2+ (NEG/TRACE)
[2016-05-09 08:31] LABS: AMORPHOUS 2+
[2016-05-09] MEDS: ALBUTEROL 0.083% 3 ML NEB NEB SCH ×3 (08:39→19:43)
[2016-05-09] MEDS ORDERED: BUDESONIDE 0.5 MG NEB NEB SCH (09:00)
[2016-05-09] MEDS ORDERED: SERTRALINE HCL 100 MG TAB PO SCH (09:00)
[2016-05-09] MEDS: OXYCODONE HCL 5 MG TABLET PO PRN ×2 (11:26→19:23)
[2016-05-09] MEDS: GUAIFENESIN 600 MG LA TAB PO SCH ×2 (11:26→21:09)
[2016-05-09] MEDS: SERTRALINE HCL 25 MG TAB PO SCH (11:26)
[2016-05-09] MEDS: HYDROCHLOROTHIAZIDE 25 MG TAB PO SCH (11:26)
[2016-05-09] MEDS: ALPRAZOLAM 0.5 MG TAB PO PRN ×2 (11:26→21:22)
[2016-05-09] MEDS: PANTOPRAZOLE 40 MG TAB PO SCH (11:26)
[2016-05-09] MEDS: BUDESONIDE 0.5 MG NEB NEB SCH (19:44)
[2016-05-09] MEDS: NICOTINE 21 MG PATCH TOP SCH (21:09)
[2016-05-10] MEDS ORDERED: Levofloxacin 750 mg/150 ml D5W 750 MG/150 ML RTU IV SCH
[2016-05-10] MEDS: OXYCODONE HCL 5 MG TABLET PO PRN ×2 (01:20→09:42)
[2016-05-10] MEDS: LORAZEPAM 2 MG/ML VIAL IV PRN ×2 (02:02→09:41)
[2016-05-10] MEDS: ALBUTEROL 0.083% 3 ML NEB NEB SCH ×2 (02:07→08:44)
[2016-05-10 04:44] LABS: MPV 7.8 fL (7.4-10.4)
[2016-05-10 04:57] LABS: BLOOD UREA NITROGEN 26 MG/DL (7-17); CALCIUM 8.5 MG/DL (8.4-10.2); CALCULATED OSMOLALITY 270 MOs/Kg (270-290); CHLORIDE 98 mEq/L (98-107); GLUCOSE 109 MG/DL (70-99); LDL (calc.) 109.2 MG/DL (<100); SODIUM LEVEL 137 mEq/L (137-146); VLDL (calc.) 25.8 MG/DL (5-40)
[2016-05-10] MEDS: METHYLPREDNISOLONE 40 MG/1 ML VIAL IV SCH (05:34)
[2016-05-10] MEDS: NITROGLYCERINE 2 % OINTMENT PACK TOP SCH ×2 (05:34→12:21)
[2016-05-10] MEDS: PANTOPRAZOLE 40 MG TAB PO SCH ×3 (05:34→09:44)
[2016-05-10] MEDS: ENOXAPARIN 60 MG/0.6 ML PFS SQ SCH (05:34)
[2016-05-10] MEDS: BUDESONIDE 0.5 MG NEB NEB SCH (08:49)
[2016-05-10] MEDS: HYDROCHLOROTHIAZIDE 25 MG TAB PO SCH (09:43)
[2016-05-10] MEDS: NICOTINE 21 MG PATCH TOP SCH (09:43)
[2016-05-10] MEDS: ASPIRIN 325 MG TAB PO SCH (09:43)
[2016-05-10] MEDS: LISINOPRIL 5 MG TAB PO SCH (09:43)
[2016-05-10] MEDS: ATORVASTATIN 40 MG TAB PO SCH (09:43)
[2016-05-10] MEDS: GUAIFENESIN 600 MG LA TAB PO SCH (09:43)
[2016-05-10] MEDS: SERTRALINE HCL 25 MG TAB PO SCH (09:43)
[2016-05-10 11:28] VITALS: BP 114/76; TEMP 97.1
--- NOTE | 2016-05-10 13:01 | PCM.DCS92 ---
- Final/Secondary Discharge Diagnosis (1) Acute coronary syndrome Acute I24.9 - ACUTE ISCHEMIC HEART DISEASE, UNSPECIFIED Present on Admission: Yes Comment: Likely brought on by acute cocaine use after leaving hospital. Plan: Rule out myocardial infarction. Plan: Obtain cardiac enzymes x 3. Place patient on telemetry. Give patient oxygen, aspirin. Give nitroglycerin, and morphine as needed for chest pain. Give statin. Stress test has been ordered for the morning. Patient has been advised, if the stress test is negative, to follow up with the primary care provider for evaluation of other potential causes of the chest pain. No beta-shelley due to acute cocaine use. Give RICARDO-inhibitor. Lovenox 1 milligram/kilogram q.12 hours. (2) Hypoxia Acute R09.02 - HYPOXEMIA Comment: No oxygen requirement prior to this admission. Check ambulating O2 sats in a.m.. (3) Anxiety and depression Chronic F41.8 - OTHER SPECIFIED ANXIETY DISORDERS Comment: Stable on home meds (4) GERD (gastroesophageal reflux disease) Chronic K21.9 - GASTRO-ESOPHAGEAL REFLUX DISEASE WITHOUT ESOPHAGITIS without esophagitis K21.9 - Gastro-esophageal reflux disease without esophagitis Comment: Continue PPI (5) Hypertension Chronic I10 - ESSENTIAL (PRIMARY) HYPERTENSION essential hypertension Comment: Continue home meds. (6) Nicotine addiction Chronic F17.200 - NICOTINE DEPENDENCE, UNSPECIFIED, UNCOMPLICATED cigarettes unspecified nicotine-induced disorder F17.219 - Nicotine dependence, cigarettes, with unspecified nicotine-induced disorders Comment: Strongly encouraged patient to refrain from resuming smoking Discharge Disposition: Home Discharge Condition: Fair Cognitive Discharge Status: Unimpaired Fuctional Discharge Status: Independent Physician Follow up/Referrals: Dania Rosario NP [Primary Care Provider] - One Week O2 Device: Room Air Diet at Discharge: Regular Activity: No Restrictions Call Office For: Worsening Symptoms Discontinue use of:: Alcohol, All Illegal Substances, All Types of Tobacco - DC Summary Notes HPI/Notes: This is a 50-year-old female who was just discharged from our hospital after being treated for COPD exacerbation, and returned less than 12 hours later after she used cocaine and smokes cigarettes. In the interim, she did not have enough time to fill any of the prescriptions provided to her by her discharging physician. She was admitted to the hospital with chest pain, found to have elevated troponin. Troponin was trended, has returned to normal, and her chest pain has completely resolved. In the hospital, visiting family members were found to have hypodermic needles on their person. Patient requested to be transferred directly to substance abuse recovery program, which she has participated the past. Social work and psychiatric services worked diligently to find placement for this patient, however there are long waiting lists for up to 1-2 months. The patient is currently not an acute harm to herself, she specifically denies any suicidal or homicidal ideation. She clearly understands that she needs to abstain from tobacco, cocaine and all other illegal and harmful substances. She is currently on room air, saturating well, she has no evidence of pulmonary infection or exacerbation. She is chest pain- free with normal troponin and unremarkable laboratory findings. As such, the patient is being discharged home once again today. She will not be prescribed any new prescriptions, as she was just discharged from the hospital yesterday. Hospital Course Note:: Discharge summary on patient named ISAIAH RIVERA admitted to [facility] on 05/09/16 by Benito Montalvo MD. Date of discharge is []. Total Time: 40 - Physical Exam Vital Signs: Last Vital Signs Temp 97.1 F L 05/10/16 11:28 Pulse 106 05/10/16 11:28 Resp 20 05/10/16 11:28 BP 114/76 05/10/16 11:28 Pulse Ox 95 05/10/16 11:28 Oxygen Pulse Oxygen Saturation 95 O2 Device Room Air Oxygen Flow Rate 2 Fraction of Inspired Oxygen ( FIO2) Constitutional: No apparent distress, Alert (Awake) Oriented to: Time, Person, Place - HEENT Head: Normal ( normocephalic) Eye: Normal (PERRL, EOMI, Sclera white) Oropharynx: Normal (Pharynx:Moist without exudate,Gums-no swelling) Tympanic Membrane: Normal ENT EAC: Normal TMJ: Normal Nose: No Symptoms Reported (septum midline) - Respiratory/Cardiovascular Respiratory: Diminished Cardiovascular: Normal - GI Auscultation: Normal (NABS) Palpation: Normal (Soft,No rebound or guarding, non distended) Tenderness: Non tender Salgado's Sign: Negative - Musculoskeletal Back: Normal (Non-Tender) Extremities: Normal (Normal tone, Pulses 2+ No cyanosis or edema, FROM) - Integumentary Skin: Normal, Warm, Dry Lymphatics: Normal (no adenopathy) - Neurologic Memory Impaired: Normal Cerebellar: Normal Mood Description: Normal Perception: Normal
--- NOTE | 2016-05-10 14:59 | CAPUEKG ---
[place], [place] Test Date: 2016-05-10 Pat Name: ISAIAH RIVERA Department: Room: 445 Gender: Female [employer]: : Requested By: Order Number: Reading MD: Harman Green MD Measurements Intervals [place] Rate: 86 P: 83 IL: 142 QRS: 43 QRSD: 82 T: 79 QT: 360 QTc: 430 Interpretive Statements Normal sinus rhythm Possible Anterior infarct, age undetermined Abnormal ECG Electronically Signed On 05-10-16 14:59:12 EST by Harman Green MD <[id number] [id number]
[2016-05-10 15:56] VITALS: PULSE 89
== END 2016-05-10 14:02 | disposition home or self-care (01) | DRG 311 ==
LOC: ED 23:45 → PCU 05-09 01:59
PROVIDERS: ADMIT Internal Medicine; ATTEND Internal Medicine
PROC: 039B3ZZ Drainage of Right Radial Artery, Percutaneous Approach (ICD-10-PCS; principal; 2016-05-09)
DX: I24.9 Acute ischemic heart disease, unspecified (principal); J96.22 Acute and chronic respiratory failure with hypercapnia; J44.1 Chronic obstructive pulmonary disease with (acute) exacerbation; F41.8 Other specified anxiety disorders; K21.9 Gastro-esophageal reflux disease without esophagitis; I10 Essential (primary) hypertension; F17.219 Nicotine dependence, cigarettes, with unspecified nicotine-induced disorders; Z87.01 Personal history of pneumonia (recurrent); Z79.899 Other long term (current) drug therapy; D72.829 Elevated white blood cell count, unspecified; F14.129 Cocaine abuse with intoxication, unspecified
CPT/HCPCS: 36415; 36600; 71010; 80048; 80053; 80061; 80307; 81001; 82550; 82553; 82803; 83605; 83880; 84484; 85007; 85027; 85610; 85730; 87040; 87086; 93005; 93306; 94640; 96365; 96372; 96375; 96376; 98960; 99284; 99406; J1650; J1956; J2060; J2270; J2543; J2920; J3105; J3490; J7060; J7620